=== PATIENT | male | born 1960 | race Caucasian/White ===

== ENCOUNTER 2024-03-08 08:26 | Outpatient (AMB) | payer MEDICARE, OTHER, SELFPAY ==
--- NOTE | 2024-03-08 08:39 | MHC.OFFVIS ---
Vital Signs 03/08/24 08:41 Height 5 ft 8 in Weight 188 lb 11.451 oz BMI 28.7 BP 130/82 Blood Pressure Location Rt brachial Position Sitting Respiration 18 Pulse 52 Pulse Source Pulse Oximeter Pulse Oximetry (%) 97 Oxygen Delivery Method Room Air Intake Visit Reasons: Gout/LVM to REl Rec Intake Note: Patient presents for gout. No flares ups. Allergies No Known Allergies Allergy (Verified 03/08/24 08:43) HPI HPI Gout/LVM to REl Rec: Details: Allopurinol 100 mg daily and colchicine 0.6 mg daily started after last visit in September 2023 for presumed gout. He had an episode of left ankle and foot swelling prior to initiating allopurinol. Last year he had an episode of left wrist swelling. After starting allopurinol 100 mg daily Uric acid in October was 6.9. In November, he saw Dr. Hardin who advised patient to increase allopurinol to 200mg daily. He remained on colchicine 0.6 mg daily. [facility] had [facility] which concerned patient to possibly being related to starting allopurinol or colchicine. On January 19 uric acid level is 6.5 and he self lowered dose of allopurinol 100mg daily and colchcine 0.6mg every other day. On February 08 he resumed daily allopurinol 100mg daily and colchicine 0.6mg daily due to no other episodes of blood in semen after ejuculation. February 19 he increase allopurinol 200mg daily. On March 03 he had blood in semen again. Now on allopurinol 100mg every 36 hours and colchicine 0.6mg every other days. He will be meeting with urologist next week. He had a procedure to his prostate in September. Called his urologist and inquired if the bleeding may be related to the procedure. He was told that it is rare but possible. He has not had any other joint swelling episodes since last visit. He continues to experience right knee giving out on himself. He continues to exercise regularly and goes to the gym. In the past I have given him a PT requisition to improve knee strength, which she has not pursued. Denies any joint pain or swelling [facility], [facility] Family History (Updated 03/08/24 @ 08:54 by MINNA Chavez) Father Prostate cancer Social History (Updated 03/08/24 @ 08:53 by MINNA Chavez) Household Members: Spouse Housing: House Alcohol intake: current Comment: Rare Patient Tobacco Use Status: Never used Tobacco Review of Systems Const All systems reviewed & are unremarkable except as noted in HPI and below Physical Exam Vital Signs: Last Vital Signs Pulse 52 03/08/24 08:41 Resp 18 03/08/24 08:41 BP 130/82 03/08/24 08:41 Pulse Ox 97 03/08/24 08:41 Oxygen Delivery Method Room Air 03/08/24 08:41 BMI result Body Mass Index 28.7 Const Other: General: Comfortable Skin: No lesions seen MSK: No tenderness of any joints. No synovitis noted. Good range of motion of upper extremity and lower extremity. Assessment & Plan Assessment & Plan (1) Gout: Comment: Presumed diagnosis. He recently started allopurinol and colchicine in September. Subsequently he developed bloody semen which he is concerned may be a side effect. I have looked up side effects related to both colchicine and allopurinol and could not find this to be the case. He will be following up with Urology next week. Code(s): M10.9 - Gout, unspecified Category: Medical Plan: Continue allopurinol 100 mg daily Continue colchicine 0.6 mg daily Uric acid level ordered I reviewed labs from patient's portal access which revealed normal CBC and creatinine. AST ALT and inflammatory markers have been ordered this visit Follow-up with urology Return to clinic in 3 months (2) Other termite treater helper (current) drug therapy: Code(s): Z79.899 - Other prison (current) drug therapy Category: Medical Plan: See above (3) Knee pain, right: Comment: Intermittent right knee giving out on patient. We discussed importance and knee strengthening. Code(s): M25.561 - Pain in right knee Category: Medical Plan: I will refer him to PT. Return to clinic in 3 months Orders: Orders Erythrocyte Sedimentation Rate Today M10.9 - Gout, unspecified Creatinine Today M10.9 - Gout, unspecified Complete Blood Count Auto Diff Today M10.9 - Gout, unspecified Uric Acid Today M10.9 - Gout, unspecified Aspartate Amino Transferase Today M10.9 - Gout, unspecified C Reactive Protein Today M10.9 - Gout, unspecified Alanine Aminotransferase Today M10.9 - Gout, unspecified Coding Level of Care Code Est Pt Level 4 (69213) Complex EM visit Add On G2211 Diagnoses Gout M10.9 Other termite treater helper (current) drug therapy Z79.899 Knee pain, right M25.561
[2024-03-08 08:41] VITALS: BP 130/82; PULSE 52; RESP 18; O2SAT 97; BMI 28.7
== END 2024-03-08 09:45 | disposition home or self-care (01) ==
PROVIDERS: PCP Internal Medicine; Visit Provider Internal Medicine Rheumatology
DX: M10.9 Gout, unspecified (principal); Z79.899 Other long term (current) drug therapy; M25.561 Pain in right knee
CPT/HCPCS: 99214; G2211

== ENCOUNTER → 2024-03-08 08:26 | Outpatient (BNVA) | payer MEDICARE, OTHER, SELFPAY | PROVIDERS: PCP Internal Medicine; Visit Provider Internal Medicine Rheumatology | DX: M10.9 Gout, unspecified (principal); M25.561 Pain in right knee; Z79.899 Other long term (current) drug therapy | CPT/HCPCS: 99212 ==

== ENCOUNTER 2024-06-01 09:21 | Outpatient (REF) | payer MEDICARE, OTHER, SELFPAY ==
--- NOTE | ~2024-06-01 | XR_ITS ---
EXAMINATION: XR KNEE, RIGHT CLINICAL INFORMATION: M17.0 - Bilateral primary osteoarthritis of knee COMPARISON: None available. TECHNIQUE: Two views of the right knee. FINDINGS: No acute cortical disruption or malalignment. No lytic or blastic lesions no suprapatellar bursa joint effusion. No subcutaneous emphysema. XR/XR knee RT 2V IMPRESSION: Normal x-ray, right knee. Electronically signed by: Nato Valero MD 06/01/2024 03:12 PM LADARIUS
--- NOTE | ~2024-06-01 | XR_ITS ---
EXAMINATION: XR KNEE, LEFT CLINICAL INFORMATION: M17.0 - Bilateral primary osteoarthritis of knee COMPARISON: None available. TECHNIQUE: Two views of the left knee. FINDINGS: No acute cortical disruption or malalignment. No suprapatellar bursa joint effusion. Exostosis at the quadriceps tendon insertion. No lytic or blastic lesions. Vascular calcifications. XR/XR knee LT 2V IMPRESSION: Enthesopathy, quadriceps tendon insertion. Atherosclerosis disease, peripheral. Electronically signed by: Nato Valero MD 06/01/2024 03:13 PM LADARIUS PARKER
--- OUTSIDE RECORDS SUMMARY | 2024-06-01 11:34 | XMS_ITS | Encounter Summary ---
Author Organization [facility] Address [address] [place] [address] Care Team Providers Care Plant Wrapper Name Role Phone Unavailable Primary Care Provider Unavailabl e Encounter Details Date Type Department Care Team (Latest Contact Info) Description 04/04/2020 Lab Requisition [facility] COVID [address] Through [address] [place] [address] [address] [place] [address] Benjy Allen PA-C [address] [place] [address] [id number] Encounter for laboratory testing for COVID-19 virus Social History Tobacco Use Types Packs/Day Years Used Date Smoking Tobacco: Never Assessed Sex and Gender Information Value Date Recorded Sex Assigned at Not on file Gender Identity Not on file Sexual Orientation Not on file documented as of this encounter Plan of Treatment Not on file documented as of this encounter Procedures Procedure Name Priority Date/Time Associated Diagnosis Comments COVID-19 (SARS-COV-2) - [facility] Routine 04/04/2020 11:13 AM EST Encounter for laboratory testing for COVID-19 virus [ICD-10-CM] documented in this encounter Results * COVID-19 (SARS-COV-2) (SEMA4) (04/04/2020 11:13 AM EST) COVID-19 RT-PCR NOT-DETECT ED Not-Detec gareth 04/07/2020 11:12 PM EST [facility] Comment:Interpretation: The viral RNA was not detected, making the COVID-19 diagnosis less likely. Clinical correlation is highly recommended.Final report signed by Jamie Toscano, Ph.D., [facility], Laboratory DirectorTests performed at [facility] Nasopharyngeal swab / Unknown 04/04/2020 11:13 AM EST 04/04/2020 11:13 AM EST Narrative JOHNNY KAPOOR - 04/07/2020 11:12 PM EST Performed by [employer], [employer] [address] [place] [address], CLIA# [id number] and [place] License# [id number] Benjy Allen PA-C MICROBIOLOGY - NERAL ORDERABLES JOHNNY KAPOOR documented in this encounter Visit Diagnoses Diagnosis Encounter for laboratory testing for COVID-19 virus documented in this encounter
--- OUTSIDE RECORDS SUMMARY | 2024-06-01 11:34 | XMS_ITS | Encounter Summary ---
Author Organization [facility] Address [address] [place] [id number] Care Team Providers Care Auto Transmission Specialist Name Role Phone Unavailable Primary Care Provider Unavailabl e Encounter Details Date Type Department Care Team (Latest Contact Info) Description 04/01/2020 Lab Requisition [facility] COVID Drive Through [address] [place] [address] [address] [place] [address] Benjy Allen PA-C [address] [place] [address] [phone] Encounter for laboratory testing for COVID-19 virus [...] Date/Time Associated Diagnosis Comments COVID-19 (SARS-COV-2) - [facility] Routine 04/01/2020 1:56 PM EST Encounter for laboratory testing for COVID-19 virus [ICD-10-CM] documented in this encounter Results * COVID-19 (SARS-COV-2) (SEMA4) (04/01/2020 1:56 PM EST) COVID-19 RT-PCR NOT-DETECT ED Not-Detec gareth 04/03/2020 7:39 PM EST [facility] Comment:Interpretation: The viral RNA was not detected, making the COVID-19 diagnosis less likely. Clinical correlation is highly recommended.Final report signed by Jamie Toscano, Ph.D., [facility], Laboratory DirectorTests performed at [facility] Nasopharyngeal swab / Unknown 04/01/2020 1:56 PM EST 04/01/2020 1:56 PM EST Narrative JOHNNY KAPOOR - 04/03/2020 7:39 PM EST Performed by [employer], [employer] [address] [place] [address], CLIA# [id number] and [place] License# [id number] Benjy Allen PA-C MICROBIOLOGY - NERAL ORDERABLES WELLINGTONReji KAPOOR documented in this encounter Visit Diagnoses Diagnosis Encounter for laboratory testing for COVID-19 virus documented in this encounter
--- OUTSIDE RECORDS SUMMARY | 2024-06-01 11:34 | XMS_ITS | Clinical Summary ---
Author Organization [facility] Address [address] [place] [address] Care Team Providers Care Taper Machine Name Role Phone Unavailable Primary Care Provider Unavailabl e Social History Tobacco Use Types Packs/Day Years Used Date Smoking Tobacco: Never Assessed Sex and Gender Information Value Date Recorded Sex Assigned at Not on file Gender Identity Not on file Sexual Orientation Not on file Plan of Treatment Health Maintenance Due Date Last Done Comments Hepatitis C Virus Screening 1960 HIV Screening 1971 DTaP/Tdap/Td Vaccines (1 - Tdap) 1977 Pneumococcal Vaccines 50+ (1 of 1 - PCV) 2008 Zoster (Shingles) Vaccine (1 of 2) 2008 COVID-19 Vaccine ( - 2023-2 5 season) 2023 RSV Vaccine 60 years and old er and Patients (1 - 1-dose 75+ series) 2033 Hepatitis B Vaccines Aged Out No long er eligible based on patient's age to complete this topic
--- OUTSIDE RECORDS SUMMARY | 2024-06-01 11:34 | XMS_ITS | Clinical Summary ---
Author Organization [facility] ity Address [address] [place] [address] Care Team Providers Care Building Performance Consultant Name Role Phone Anna Nathan MD Primary Care Provider [phone] Allergies Active Allergy Reactions Criticality Noted Date Comments Bee Venom Protein (Honey Bee) 2016 Medications famotidine (PEPCID) 20 mg tablet TAKE 1 TABLET BY MOUTH 2 TIMES DAILY. PRIOR TO MEALS 180 tablet 1 4 Active allopurinoL (ZYLOPRIM) 100 mg tablet Take 1 Tablet by mouth daily. Active ascorbic acid, vitamin C, 500 mg capsule Take 1 capsule by mouth 1 (one) time each day. Active colchicine (COLCRYS) 0.6 mg tablet Take 1 tablet (0.6 mg total) by mouth 1 (one) time each day. 4 Active tamsulosin (FLOMAX) 0.4 mg 24 hr capsule Take 1 capsule (0.4 mg total) by mouth at bedtime. Active multivitamin with minerals (CENTRUM) tablet Multiple Vitamins-Min erals (Multivitami n Adults 50+) Tab Take 1 Tablet by mouth daily. Active pravastatin (PRAVACHOL) 40 mg tablet TAKE 1 TABLET BY MOUTH EVERY DAY 90 tablet 1 5 Active pravastatin (PRAVACHOL) 40 mg tablet Take 1 tablet (40 mg total) by mouth 1 (one) time each day. 025 Discontinued Active Problems Problem Noted Date Diagnosed Date Hyperlipidemia 03/08/2024 Gout 12/23/2023 Gastroesophageal reflux disease without esophagi tis 11/25/2022 CKD (chronic kidney disease) stage 2, GFR 60-89 ml/min 10/19/2022 Overweight (BMI 25.0-29.9) 10/19/2022 Pre-diabetes 04/24/2022 Vitamin B 12 deficiency 04/24/2022 Chronic cough 01/06/2022 Overview (03/08/2024): Last Assessment & Plan: Chronic cough has improved. I do think that is multifactorial secondary to chronic rhinitis, seasonal allergies and GERD. We have treated the postnasal drip aggressively and the patient feels better but is not 100%. I do think is worth it and evaluation by allergy due to the fact that he improved with antihistamines. I will do a referral to allergy, renew Zyrtec and Flonase and see him back in clinic in 6 months. 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 Last on in [place]. [facility]. Rhinitis 10/11/2012 Overview (03/08/2024): Last Assessment & Plan: 1. Flonase 1 puff twice a day in each nostril 2. Zyrtec 10 mg p.o. every day Immunizations Name Administration Dates Next Due Influenza Quadravalent, MDCK , 0.5ml, preservative free (Flucelvax) 6mo and older 04/21/2021,05/26/2019 Influenza Quadravalent, MDCK , 0.5ml, with preservative (Flucelvax) 6mo and older 02/08/2018 Influenza trivalent, 0.5mL ( Fluad) 65yo and older 12/23/2023 Influenza trivalent, 0.5mL, preservative free (Fluarix; FluLaval; Fluzone) ages 6mo and older (Afluria) 3 years and older 03/26/2015,03/29/2014 Influenza trivalent, with pr eservative (Fluzone; Afluria) 6mo and older 01/16/2013 Moderna (age 6mo & older) Bi valent, COVID-19, 0.5 mL or 0.25 mL dosage 03/16/2022 Pfizer SARS-CoV-2 COVID-19, mRNA, LNP-S, preservative free 08/25/2021,07/29/2020,07/08/2020 Pneumococcal conjugate 20 va lent (Prevnar 20, PCV 20) 2mo and older 06/11/2023 Pneumococcal polysaccharide 23 valent (Pneumovax 23) 2yo and older 07/04/2001 Td Tetanus diptheria (Tdvax) 7yo and older 10/29 Tdap Tetanus diptheria acell ular pertussis (Boostrix; Adacel) 7yo and older 10/05/2022,04/18/2013 Zoster recombinant (Shingrix ) 19yo and older 07/08/2022,05/13/2022 Surgical History Surgery Date Site/Laterality Comments OTHER SURGICAL HISTORY PROCEDURE: ---- OTHER ----; COMMENT: cornal trasplant OTHER SURGICAL HISTORY PROCEDURE: ---- OTHER ----; COMMENT: deviated septum OTHER SURGICAL HISTORY PROCEDURE: ---- OTHER ----; COMMENT: arthrospic knee surgery HERNIA REPAIR 12/09/2018 Right PROCEDURE: LAPAROSCOPY, INGUINAL HERNIA REPAIR; COMMENT: Dr. Guerrero Medical History Medical History Date Comments Dyslipidemia DX:Dyslipidemia Microscopic hematuria DX:Microsc opic hematuria Gout 12/23/2023 DX:Gout Family History Medical History Relation Name Comments Prostate cancer Father CVA, HTN, ch olesterol Leukemia Paternal Grandfather Relation Name Status Comments Father Mother Alive Paternal Grandfather Social History Tobacco Use Types Packs/Day Years Used Date Smoking Tobacco: Never Smokeless Tobacco: Never Alcohol Use Standard Drinks/Week Comments Yes 0 (1 standard drink = 0.6 oz pur e alcohol) Sex and Gender Information Value Date Recorded Sex Assigned at Not on file Legal Sex Male 3:17 PM EST Gender Identity Not on file Sexual Orientation Not on file Obstetrics History Last Filed Vital Signs Vital Sign Reading Time Taken Comments Blood Pressure 130/84 12/23/2023 8:45 AM EDT Pulse 76 12/23/2023 8:29 AM EDT Temperature - - Respiratory Rate - - Oxygen Saturation - - Inhaled Oxygen Concentration - - Weight 86 kg (189 lb 8 oz) 12/23/2023 8:29 AM ED T Height 171.5 cm (5' 7.5 ) 12/23/2023 8:29 AM EDT Body Mass Index 29.24 12/23/2023 8:29 AM EDT Plan of Treatment Upcoming Encounters Date Type Department Care Team (Late st Contact Info) Description 07/20/2024 8:30 AM EDT Office Visit Adult Medicine [facility] [address] [place] [address] Anna Nathan MD [address] [place] [address] Health Maintenance Due Date Last Done Comments Medicare Annual Wellness Visit 03/21/2022 Social Influencers of Health Screening 03/21/2022 COVID-19 Vaccine ( season) 2023 03/16/2022, 08/25/2021, 07/29/2020, Additional history exists Depression Screening 12/22/2024 12/23/2023 Falls Risk Assessment 12/22/2024 12/23/2023 Cholesterol Screening (Lipid Panel) 07/04/2028 07/05/2023 Colorectal Cancer Screening: Colonoscopy 01/27/2029 01/27/2019 DTaP,Tdap,and Td Vaccines (4 - Td or Tdap) 10/05/2032 10/05/2022, 04/18/2013, 10/29/2006 RSV Immunization Patients 60+ Years Old (1 - 1-dose 75+ series) 2033 Hepatitis C Screening Completed 12/05/2016 Zoster Vaccines Completed 07/08/2022, 05/13/2022 Pneumococcal Vaccine: 50+ Years Completed 06/11/2023, 07/04/2001 Pneumococcal Vaccine: Pediatrics (0 to 5 Years) and At-Risk Patients (6 to 64 Years) Aged Out 06/11/2023, 07/04/2001 No longer eligibl e based on patient's age to complete this topic Influenza Vaccine Completed 12/23/2023, , 05/26/2019, Additional history exists HIB Vaccines Aged Out No longer eligi ble based on patient's age to complete this topic HPV Vaccines Aged Out No longer eligi ble based on patient's age to complete this topic Hepatitis A Vaccines Aged Out No long er eligible based on patient's age to complete this topic Hepatitis B Vaccines Aged Out No long er eligible based on patient's age to complete this topic IPV Vaccines Aged Out No longer eligi ble based on patient's age to complete this topic MMR Vaccines Aged Out No longer eligi ble based on patient's age to complete this topic Meningococcal ACWY Vaccine Aged Out N o longer eligible based on patient's age to complete this topic Meningococcal B Vacine Aged Out No lo nger eligible based on patient's age to complete this topic RSV Immunization Patients Under 20 months Aged Out No longer eligible based on patient's age to complete this topic Varicella Vaccines Aged Out No longer eligible based on patient's age to complete this topic Procedures Procedure Name Priority Date/Time Associated Diagnosis Comments DEPRESSION SCREENING Routine 12/23/2023 FALLS RISK ASSESSMENT Routine 12/23/2023 LIPID PANEL Routine 07/05/2023 COLONOSCOPY Routine 01/27/2019 HEPATITIS C SCREENING Routine 12/05/2016 from Last 3 Months or Most Recently Relevant to Health Maintenance Results * Falls Risk Assessment (12/23/2023) Pathologist [facility] [place] Falls Risk Assessment Abstracted Historical Provider MD HEALTH MAINTENANCE Final Result * Depression Screening (12/23/2023) Pathologist [facility] Depression Screening Abstracted Historical Provider MD HEALTH MAINTENANCE Final Result * Lipid panel (07/05/2023) Pathologist [facility] LDL/HDL Ratio 3 0 - 4 Triglycerides 97 0 - 150 mg/dL Cholesterol 175 0 - 200 mg/dL HDL 59 >=40 mg/dL LDL Cholesterol 97 0 - 100 mg/dL Blood Venous blood specimen / Unknown us Historical Provider LAB BLOOD ORDERABLES Deidre l Result * Colonoscopy (01/27/2019) Colonoscopy Abstracted, no interpretation Anatomical Region Laterality Modality Other Historical Provider HEALTH MAINTENANCE Final Result * Hepatitis C Screening (12/05/2016) Hepatitis C Screening Abstracted Historical Provider HEALTH MAINTENANCE Final Result from Last 3 Months or Most Recently Relevant to Health Maintenance Insurance MEDICARE Care Teams Building Performance Consultant Relationship Specialty Start Date End Date Anna Nathan MD [address] [place] [address] PCP - General Internal Medicine 02/14/21
== END 2024-06-01 09:22 | disposition home or self-care (01) ==
LOC: HO.HMGCX 09:21
PROVIDERS: PCP Internal Medicine; Visit Provider Internal Medicine Rheumatology
DX: M1A.09X0 Idiopathic chronic gout, multiple sites, without tophus (tophi) (principal); M17.0 Bilateral primary osteoarthritis of knee; M19.041 Primary osteoarthritis, right hand; G89.29 Other chronic pain; Z79.899 Other long term (current) drug therapy
CPT/HCPCS: 73560; 99212

== ENCOUNTER 2024-06-01 09:21 | Outpatient (AMB) | payer MEDICARE, OTHER, SELFPAY ==
--- NOTE | 2024-06-01 09:23 | A.OFFVIS_ITS ---
Vital Signs 06/01/24 09:25 Height 5 ft 8 in Weight 192 lb BMI 29.2 BP 110/82 Blood Pressure Location Rt brachial Position Sitting Intake Visit Reasons: Follow Up 3mo Intake Note: Patient presents for gout follow up. Allergies No Known Allergies Allergy (Verified 06/01/24 09:25) HPI HPI Follow Up 3mo: Details: Increase pain left lateral hip wednesday morning. Exacerbated with shoveling snow. He has been experiencing pain with limited mobility of right 2nd finger for at least a month to month and a half. No recent gout flares. After prolonged sitting he has difficulty going upstairs. He has do stretches knees. He feels that there is weakness in his knees when he is going upstairs. His daughter has training in sports Medicine and has been giving him exercises regularly to do since 12/2023. There has been no change in his symptoms. He has previously declined PT. [facility] Family History Father Prostate cancer Social History Household Members: Spouse Housing: House Alcohol intake: current Comment: Rare Patient Tobacco Use Status: Never used Tobacco Review of Systems Const All systems reviewed & are unremarkable except as noted in HPI and below Physical Exam Vital Signs: Last Vital Signs BP 110/82 06/01/24 09:25 BMI result Body Mass Index 29.2 Const Other: General: Comfortable Skin: No lesions seen MSK: Heberden nodes present. Tender right 2nd DIPJ with Heberden node. Slight synovitis of right 2nd DIPJ. Good range of motion of upper extremity and lower extremity. Negative anterior and posterior drawer test right knee. Assessment & Plan Assessment & Plan (1) Gout: Comment: Presumed diagnosis. He takes allopurinol 100 mg daily and colchicine 0.6 mg daily. No recent flares. Last uric acid was 6.6, which is not at goal. When he was on allopurinol 200 mg daily his uric acid level was not at goal. We discussed increasing allopurinol to 300 mg daily to help control uric acid level and continuing colchicine to prevent gout flares. Patient agrees with plan. Code(s): M10.9 - Gout, unspecified Category: Medical Qualifiers: Gout site: multiple sites Gout etiology: unspecified cause Chronicity: chronic Qualified Code(s): M1A.09X0 - Idiopathic chronic gout, multiple sites, without tophus (tophi) Plan: Increase allopurinol to 300 mg daily Continue colchicine 0.6 mg daily Uric acid level for disease monitoring and,CBC, creatinine, AST and ALT for drug monitoring ordered to have done in a month after patient returns from [place] Return to clinic in 3 months (2) Other correction (current) drug therapy: Code(s): Z79.899 - Other correction (current) drug therapy Category: Medical Plan: See above (3) Osteoarthritis, hand, primary localized: Comment: Julissa osteoarthritis. Clinical diagnosis. Right 2nd DIPJ osteoarthritis flare. X-ray bilateral hands May 2023 was normal. We discussed conservative management. Code(s): M19.049 - Primary osteoarthritis, unspecified hand Category: Medical Qualifiers: Laterality: right Qualified Code(s): M19.041 - Primary osteoarthritis, right hand Plan: Apply diclofenac gel 1% to affected area every 4-6 hours as needed Return to clinic in 3 months (4) Knee pain, right: Comment: His symptoms have worsened with him experiencing right knee/leg weakness when going up stairs. History of his right knee giving out on him. He has been working with his daughter has experience with sports Medicine on a home exercise program without benefit. X-ray right knee 07/16/2022 was normal. Code(s): M25.561 - Pain in right knee Category: Medical Qualifiers: Chronicity: chronic Qualified Code(s): M25.561 - Pain in right knee; G89.29 - Other chronic pain Plan: PT referral for lower extremity strengthening X-ray of bilateral knees ordered for comparison and to determine if there is new development of osteoarthritis contributing to his symptoms Return to clinic in 3 months Orders: Orders Uric Acid Today Z79.899 - Other correction (current) drug therapy Aspartate Amino Transferase Today Z79.899 - Other long chain quiller tender (current) drug therapy XR knee RT 2V Today M17.0 - Bilateral primary osteoarthritis of knee XR knee LT 2V Today M17.0 - Bilateral primary osteoarthritis of knee PT Evaluation and Treatment Today M19.049 - Primary osteoarthritis, unspecified hand Alanine Aminotransferase Today Z79.899 - Other long chain quiller tender (current) drug therapy Complete Blood Count Auto Diff Today Z79.899 - Other correction (current) drug therapy Medications: New diclofenac sodium 1% (Arthritis Pain (diclofenac)) apply to affected area every 4-6 hours PRN pain 2 grams topical QID 100 grams 5RF allopurinol 300 mg PO DAILY 90 tabs 3RF Changed From colchicine 0.3 mg PO DAILY To colchicine 0.6 mg PO DAILY 90 tabs 2RF Discontinued allopurinol Discontinued Reason: Doctor's Order 100 mg PO DAILY 90 tabs 3RF Coding Level of Care Code Est Pt Level 4 (46330) Complex EM visit Add On G2211 Diagnoses Chronic gout of multiple sites, unspecified cause M1A.09X0 Gout site: multiple sites Gout etiology: unspecified cause Chronicity: chronic Other long chain quiller tender (current) drug therapy Z79.899 Localized primary osteoarthritis of right hand M19.041 Laterality: right Chronic pain of right knee M25.561; G89.29 Chronicity: chronic
[2024-06-01 09:25] VITALS: BP 110/82; BMI 29.2
--- OUTSIDE RECORDS SUMMARY | 2024-06-01 10:05 | XMS_ITS | Continuity of Care Document ---
Author Organization [facility] ter Address [address] [place] [address]- Care Team Providers Care Manager Implementation Name Role Phone Deb Chaudhry DO Primary Care Celestino sommer Encounter 05/08/24 - 05/09/24 [facility] [address] [place] [address]- Attending Physician: Not on Staff, Attending MD Referring Physician: Not on Staff, Referring MD Encounter Type: [facility] Allergies, Adverse Reactions, Alerts No Known Allergies Immunizations Given and Recorded Vaccine Date Status Refusal Reason influ virus vac, H1N1, inactive(oldterm) 1 05/30/09 Given tetanus-diphtheria toxoids (Td) 2 10/29/06 Given Pneumococcal Poly (PPV23) (oldterm) 07/04/01 Given 1Admin Note: H1N1 vis given 2Admin Note: vis form given, inj given without incident. Medications Aspirin Tablet 81 mg, By Mouth, Daily, # 24 tablet, Tot. Refills 0, 06/25/07 9:41:51 AM EDT Start Date: 06/25/07 Status: Ordered Quantity: 24.0 Unit: tablet Repeat number: 1 Claritin 24 Hour Allergy 10 mg oral tablet 1 tablet = 10 mg, By Mouth, Daily, # 30 tablet, 0 Refills, Maintenance, 09/14/11 8:27:37 AM EDT, Tablet Start Date: 09/14/11 Status: Ordered Quantity: 30.0 Unit: tablet Repeat number: 1 [place]-3 Polyunsaturated Fatty Acids = 2,000 mg, By Mouth, Daily, 0 Refills, Maintenance, 9/16/10 4:38:10 PM EDT Start Date: 12/26/09 Status: Ordered Repeat number: 1 Alfredo Dailey 0 Refills, 10/03/08 8:22:57 AM EDT Start Date: 10/03/08 Status: Ordered Repeat number: 1 simvastatin 20 mg oral tablet 1 tablet = 20 mg, By Mouth, Daily, # 90 tablet, 2 Refills, Maintenance, 03/25/12 11:54:36 AM EST, [facility]/pharmacy #[id number] Start Date: 03/25/12 Stop Date: 12/20/12 Status: Ordered Quantity: 90.0 Unit: tablet Repeat number: 3 Vitamin D3 1000 intl units oral capsule Daily, 0 Refills, Maintenance, 12/26/09 4:37:47 PM EDT Start Date: 12/26/09 Status: Ordered Repeat number: 1 Problem List Condition Confirmation Course Effective Dates Status H ealth Status Informant BPH - Benign prostatic hypertrophy Confirmed Active Corneal transplant Confirmed Active Hyperlipidemia Confirmed Active Perennial allergic rhinitis Confirmed Active Results Radiology Reports * Exam Date Time Procedure Performing Provider Status 05/08/24 1:45 PM MR Prostate W+W/O Co ntrast 3D Reformat Auth (Verified) Notes: (MR Prostate W+W/O Contrast 3D Reformat) Reason For Exam: Elevated prostate specific antigen [PSA];Elevated prostate specific antigen [PSA] RESULT: MR Prostate W+W/O Contrast 3D Reformat [facility] VISIT NUMBER :[id number] Patient Name: Zina Stoddard Date of : 1960 Date of Exam: 05-08-2024 Referring Physician: Joey Mosley [facility] [place] [address] Exam: MR Prostate (C-/C+) with 3D reformat CPT 62538, 75318 Room Description: [facility] 3T MRI MR Prostate (C-/C+) with 3D reformat CPT 32321, 24239 REASON FOR EXAM: Male aged 63 years diagnosed with elevated PSA. Prostate biopsy date and results: Prior prostate biopsies with benign results. Most recent PSA: 13.0 TECHNIQUE: Noncontrast and contrast-enhanced multiparametric MRI of the prostate gland was performed utilizing a body matrix coil and PROSTATE PROTOCOL. Dynamic pre- and postcontrast imaging was utilized. 18 cc of intravenous Dotarem contrast was administered. High resolution axial, sagittal, and coronal FSE T2, axial FSE T1, axial DWI, axial pre and multiphase dynamic postcontrast 3D FSPGR T1 pulse sequences were performed. Postprocessing on an independent workstation included creation of a 3D rotational prostate segmentation volume analysis, 3D lesion analysis, subtraction images, multiplanar reformatted images, wash-in and wash-out maps as well as computer aided detection (CAD) GauzyaCAD software. Findings are reported using Prostate Imaging Reporting and Data System (PI-RADS) version 2.1. COMPARISON: Multiple prior prostate MRIs, most recently June 17, 2023 FINDINGS: The prostate is enlarged and measures 6.1 x.5 x 7.1 cm. 3D processing calculated prostate volume is 101.4 cc. PERIPHERAL ZONE: There are no areas of T1 hyperintensity to suggest the presence of hemorrhage. Peripheral zone lesion #1: * Size: 1.2 x 0.7 x 0.6 cm. * Location: Left posteromedial/posterolateral portion of the peripheral zone at the base to mid gland, zone 7p/8p/9p/20p (series 4 images 17 and 18). * Diffusion: Diffusion characteristics are described as focal markedly hypointense on ADC and hyperintense on high b-value DWI, cm in greatest dimension, correlating with a DWI-ADC score of 4. * T2-Weighted: Heterogeneous signal intensity or ill-defined, rounded, moderate hypointensity correlating with a T2W score of 3. * Perfusion: Positive dynamic contrast enhancement corresponding to suspicious findings on T2 and/or DWI-ADC. * Shortest distance from urethra: 1.2 cm. * Shortest distance from prostatic capsule: 0 cm. * Capsule: Intact. * Overall suspicion: Category 4: High (Clinically significant cancer is likely to be present). TRANSITION ZONE: The transition zone is heterogeneous and contains well-defined nodules yielding the organized chaos appearance of benign prostatic hyperplasia. Transition zone lesion #2: * Size: 3.0 x 1.7 x 1.8 cm. * Location: Left posterior portion of the transition zone at the mid gland to base, zone 7a/9a (series 4 images 16-21). * T2-Weighted: Heterogeneous signal intensity with obscured margins correlating with a T2W score of 3. * Diffusion: Focal (discrete and different from the background) hypointense on ADC and/or focal hyperintense on high b-value DWI; may be markedly hypointense on ADC or markedly hyperintense on high b-value DWI, but not both, correlating with a DWI-ADC score of 3. * Perfusion: Positive dynamic contrast enhancement corresponding to suspicious findings on T2 and/or DWI-ADC. * Shortest distance from urethra: 0.6 cm. * Shortest distance from prostatic capsule: 0 cm. * Capsule: Intact. * Overall suspicion: Category 3: Intermediate (Clinically significant cancer is equivocal). PROSTATE CAPSULE: There is no evidence of capsular invasion. SEMINAL VESICLES: Asymmetric increased T1 hyperintensity within the left seminal vesicle suggesting proteinaceous or hemorrhagic debris. LYMPH NODES: No enlarged pelvic or inguinal lymph nodes. VESSELS: Major pelvic vessels demonstrate normal enhancement. URINARY BLADDER: Layering T1 hyperintensity within the bladder lumen. PELVIS: No free fluid. COLON AND RECTUM: The visualized loops of large and small bowel are unremarkable aside from mild colonic diverticulosis BONES: No suspicious osseous lesion. ADDITIONAL FINDINGS: Suspected right inguinal herniorrhaphy changes with persistent or recurrent indirect fat-containing right inguinal hernia. Vasectomy clips. IMPRESSION: 1. Unchanged 1.2 cm left posteromedial/posterolateral peripheral zone lesion at the base, possibly representing residual central gland stroma given the location and appearance. PI-RADS v2.1 Category 4: High (Clinically significant cancer is likely to be present). 2. 3 cm left posterior transition zone lesion at the mid gland to base with heterogeneous signal intensity with obscured margins and patchy areas of mild to moderate restricted diffusion. PI-RADS v2.1 Category 3: Intermediate (Clinically significant cancer is equivocal). 3. No evidence of adenopathy, capsule, or seminal vesicle invasion. No suspicious osseous lesion. 4. 3D processing calculated prostate volume is 101.4 cc. REFERENCE: PI-RADS Version 2.1 Assessment Categories: Category 1: Very low - Clinically significant cancer is highly unlikely. Category 2: Low - Clinically significant cancer is unlikely. Category 3: Intermediate - Clinically significant cancer is equivocal. Category 4: High - Clinically significant cancer is likely. Category 5: Very High - Clinically significant cancer is highly likely. PI-RADS Version 2.1 Definition of Clinically Significant Cancer: Tumor with a Kosta score of 7 or more (either 4 + 3 or 3 + 4 with a prominent Guthrie 4 com?ponent) and/or volume greater than 0.5 cm3 and/or extraprostatic extension. Electronically Signed By: Garcia Lucas MD Dictated By: Not on Staff , ASHLEY COPELAND Dictated Date/Time: 05/08/24 3:17 pm Reviewed By: Not on Staff , ASHLEY COPELAND Signed By: Not on Staff , ASHLEY COPELAND Signed Date/Time: 05/08/24 3:17 pm Transcribed By: MELANIA Transcribed Date/Time: 05/08/24 3:17 pm Patient Care team information Care Team Personnel Name: Marni Roberts RN Position: [facility] AMB Nurse Member Role: Primary Care Nurse Name: Deb Chaudhry DO Position: [facility] Physician - Primary Care Member Role: PCP Address: [address] [place] [address] Telecom: Care Team Related Persons Name: MARISSA STODDARD Insurance Providers Guarantor name: [employer]LAZE Health Plan Information #: 1 Payer: [facility] Member Number: NA Policy Number: NA Group Number: NA
== END 2024-06-01 10:00 | disposition home or self-care (01) ==
PROVIDERS: PCP Internal Medicine; Visit Provider Internal Medicine Rheumatology
DX: M1A.09X0 Idiopathic chronic gout, multiple sites, without tophus (tophi) (principal); Z79.899 Other long term (current) drug therapy; M19.041 Primary osteoarthritis, right hand; M25.561 Pain in right knee; G89.29 Other chronic pain
CPT/HCPCS: 99214; G2211

== ENCOUNTER → 2024-06-01 10:29 | Outpatient (BNV) | payer MEDICARE, OTHER, SELFPAY | PROVIDERS: PCP Internal Medicine; Visit Provider Radiology Diagnostic Radiology | DX: M17.0 Bilateral primary osteoarthritis of knee (principal); I73.9 Peripheral vascular disease, unspecified | CPT/HCPCS: 73560 ==

== ENCOUNTER 2024-08-18 14:43 | Outpatient (REF) | payer MEDICARE, OTHER, SELFPAY ==
--- OUTSIDE RECORDS SUMMARY | 2024-08-18 14:47 | XMS_ITS | Clinical Summary ---
Author Organization [facility] Address [address] [place] [address] Care Team Providers Care Data Analyst Etl Developer Name Role Phone Unavailable Primary Care Provider Unavailabl e Social History Tobacco Use Types Packs/Day Years Used Date Smoking Tobacco: Never Assessed Sex and Gender Information Value Date Recorded Sex Assigned at Not on file Legal Sex Male 6:18 PM EDT Gender Identity Not on file Sexual Orientation Not on file Plan of Treatment Health Maintenance Due Date Last Done Comments Hepatitis C Virus Screening 1960 DTaP/Tdap/Td Vaccines (1 - Tdap) 1977 Pneumococcal [...]
--- OUTSIDE RECORDS SUMMARY | 2024-08-18 14:47 | XMS_ITS | Encounter Summary ---
Author Organization [facility] Address [address] [place] [address] Care Team Providers Care Pari Mutuel Ticket Cashier Name Role Phone Unavailable Primary Care Provider Unavailabl e Encounter Details Date Type Department Care Team (Latest Contact Info) Description 04/01/2020 Lab Requisition [facility] COVID [address] Through [address] [place] [address] [address] [place] [address] Benjy Allen PA-C [address] [place] [id number] Encounter for laboratory testing for COVID-19 virus [...] Date/Time Associated Diagnosis Comments COVID-19 (SARS-COV-2) - [facility] Routine 04/01/2020 1:56 PM EST Encounter for laboratory testing for COVID-19 virus [ICD-10-CM] documented in this encounter Results * COVID-19 (SARS-COV-2) ([facility]) (04/01/2020 1:56 PM EST) COVID-19 RT-PCR NOT-DETECT ED Not-Detec gareth 04/03/2020 7:39 PM EST [facility] - [place] Comment:Interpretation: The viral RNA was not detected, making the COVID-19 diagnosis less likely. Clinical correlation is highly recommended.Final report signed by Jamie Toscano, Ph.D., [facility], Laboratory DirectorTests performed at [facility] Nasopharyngeal swab / Unknown 04/01/2020 1:56 PM EST 04/01/2020 1:56 PM EST Narrative WELLINGTONReji LARIOS Dia RAMSAYLISSETTE - 04/03/2020 7:39 PM EST Performed by [facility] [address] [place] [address], CLIA# [id number] and [place] License# [id number] Benjy Allen PA-C MICROBIOLOGY - GENERAL OR DERABLES Final Result JOHNNY KAPOOR documented in this encounter Visit Diagnoses Diagnosis Encounter for laboratory testing for COVID-19 virus documented in this encounter
--- OUTSIDE RECORDS SUMMARY | 2024-08-18 14:47 | XMS_ITS | Clinical Summary ---
Author Organization [address] Address [address] [place] [phone] Phone Care Team Providers Care Roll Form Operator Name Role Phone Anna Nathan MD Primary Care Provider [phone] Allergies Active Allergy Reactions Criticality Noted Date Comments Bee Venom Protein (Honey Bee) 2016 Medications famotidine (PEPCID) 20 mg tablet TAKE 1 TABLET BY MOUTH 2 TIMES DAILY. PRIOR TO MEALS 180 tablet 1 4 Active ascorbic acid, vitamin C, 500 mg [...] EVERY DAY 90 tablet 1 5 Active allopurinoL (ZYLOPRIM) 100 mg tablet Take 3 tablets (300 mg total) by mouth 1 (one) time each day. Take 1 Tablet by mouth daily. 5 Active allopurinoL (ZYLOPRIM) 100 mg tablet Take 1 Tablet by mouth daily. 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 Last on in [place]. [facility]. Resolved Problems Problem Noted Date Diagnosed Date Resolved Date CKD (chronic kidney disease) stage 2, GFR 60-89 ml/min 10/19/2022 07/20/2024 Rhinitis 10/11/2012 07/12/2024 Overview (03/08/2024): Last Assessment & Plan: 1. Flonase 1 puff twice a day in each nostril 2. Zyrtec 10 mg p.o. every day Encounters Date Type Department Care Team Description 07/20/2024 8:30 AM EDT Office Visit Adult Medicine [address] [phone] Anna Nathan MD Pre-diabetes (Primary Dx); Decreased hearing of both ears; Vitamin B 12 deficiency; Other hyperlipidemia from Last 3 Months Immunizations Name Administration Dates Next Due Influenza [...] 0.5 mL or 0.25 mL dosage 03/16/2022 [employer] SARS-CoV-2 COVID-19, mRNA, LNP-S, preservative free 08/25/2021,07/29/2020,07/08/2020 [...] Surgery Date Site/Laterality Comments OTHER SURGICAL HISTORY : corneal transplant OTHER SURGICAL HISTORY deviated septum OTHER SURGICAL HISTORY arthrospic knee surgery HERNIA REPAIR 12/09/2018 Right inguinal COLONOSCOPY 01/27/2019 Medical History Medical History Date Comments Microscopic hematuria Gout 12/23/2023 CKD (chronic kidney disease) stage 2, GFR 60-89 ml/min 10/19/2022 Hyperlipidemia 03/08/2024 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 Last on in [place]. [facility]. Pre-diabetes 04/24/2022 Vitamin B 12 deficiency 04/24/2022 Nephrolithiasis 06/07/2017 Benign prostatic hyperplasia with lower urinary tract symptoms 06/07/2017 Family History Medical History Relation Name Comments Prostate cancer Father CVA, HTN, ch olesterol Leukemia Paternal Grandfather Relation Name Status Comments Father Mother Alive Paternal Grandfather Social History Tobacco Use Types Packs/Day Years Used Date Smoking Tobacco: Never Smokeless Tobacco: Never Tobacco Cessation:Counseling Given: Not Answered Alcohol Use Standard Drinks/Week Comments Yes 0 (1 standard drink = 0.6 oz pur e alcohol) Sex and Gender Information Value Date Recorded Sex Assigned at Not on file Legal Sex Male 3:17 PM EST Gender Identity Not on file Sexual Orientation Not on file Obstetrics History Last Filed Vital Signs Vital Sign Reading Time Taken Comments Blood Pressure 132/68 07/20/2024 8:25 AM EDT Pulse 69 07/20/2024 8:25 AM EDT Temperature 36.2 ??C (97.1 ??F) 07/20/2024 8:25 AM ED T Respiratory Rate 14 07/20/2024 8:25 AM EDT Oxygen Saturation 96% 07/20/2024 8:25 AM EDT Inhaled Oxygen Concentration - - Weight 87 kg (191 lb 12.8 oz) 07/20/2024 8:25 AM EDT Height 172.7 cm (5' 8 ) 07/20/2024 8:25 AM EDT Body Mass Index 29.16 07/20/2024 8:25 AM EDT Plan of Treatment Upcoming Encounters Date Type Department Care Team (Late st Contact Info) Description 01/22/2025 8:15 AM EDT Office Visit Adult Medicine [facility] [address] [place] [address] Anna Nathan MD [address] [place] [address] Health Maintenance Due Date Last Done Comments Medicare Annual Wellness Visit 03/21/2022 Social Influencers of Health Screening 03/21/2022 COVID-19 Vaccine ( season) 2023 01/15/2023, 03/16/2022, 08/25/2021, Additional history exists Depression Screening 12/22/2024 12/23/2023 Falls Risk Assessment 12/22/2024 12/23/2023 Colorectal Cancer Screening: Colonoscopy 01/27/2029 01/27/2019 Cholesterol Screening (Lipid Panel) 08/16/2029 08/16/2024, 07/05/2023 DTaP,Tdap,and Td Vaccines (4 - Td or Tdap) 10/05/2032 10/05/2022, 04/18/2013, 10/29/2006 RSV Immunization Adult Patients (1 - 1-dose 75+ series) 2033 Hepatitis C Screening Completed 12/05/2016 Zoster Vaccines Completed 07/08/2022, 05/13/2022 Pneumococcal Vaccine: 50+ Years Completed 06/11/2023, 07/04/2001 Influenza Vaccine Completed 12/23/2023, , 05/26/2019, Additional [...] age to complete this topic Meningococcal B Vaccine Aged Out No l onger eligible based on patient's age to complete this topic RSV Immunization Patients Under 20 months Aged Out No longer eligible based on patient's age to complete this topic Varicella Vaccines Aged Out No longer eligible based on patient's age to complete this topic Procedures Procedure Name Priority Date/Time Associated Diagnosis Comments HEMOGLOBIN A1C Routine 08/16/2024 7:43 AM EDT Pre-diabetes LIPID PANEL WITH REFLEX TO DIRECT LDL Routine 08/16/2024 7:43 AM EDT Other hyperlipidemia DEPRESSION SCREENING Routine 12/23/2023 FALLS RISK ASSESSMENT Routine 12/23/2023 COLONOSCOPY Routine 01/27/2019 HEPATITIS C SCREENING Routine 12/05/2016 from Last 3 Months or Most Recently Relevant to Health Maintenance Results * (ABNORMAL) Lipid panel with reflex to direct LDL (08/16/2024 7:43 AM EDT) Cholesterol 176 0 - 200 mg/dL LAB CHEMISTRY METHOD 08/16/2024 11:10 AM EDT [facility] Triglycerides 107 0 - 150 mg/dL LAB CHEMISTRY METHOD 08/16/2024 11:10 AM EDT [facility] HDL 53 >=40 mg/dL LAB CHEMISTRY METHOD 08/16/2024 11:10 AM EDT [facility] LDL Calculated 102(H) 0 - 100 mg/dL LAB CHEMISTRY METHOD 08/16/2024 11:10 AM EDT [facility] VLDL Cholesterol Issac 21.4 mg/dL LAB CHEMISTRY METHOD 08/16/2024 11:10 AM EDT [facility] Non HDL Chol. (LDL+VLDL) 123 <145 mg/dL LAB CHE[facility]STRY [facility] Chol/HDL Ratio 3.3 0.0 - 4.4 LAB CHEMISTRY METHOD 08/16/2024 11:10 AM T [facility] Blood Venous blood specimen / Unknown Venipuncture / Unknown 08/16/2024 7:43 AM EDT 08/16/2024 7:43 AM EDT us Anna Nathan MD LAB BLOOD ORDERABLES Final Resul t [facility] [address] [place] [address], * Hemoglobin A1c (08/16/2024 7:43 AM EDT) Hemoglobin A1C 5.8 <6.5 % LAB CHEMISTRY METHOD 08/16/2024 11:24 AM EDT [facility] Mean Bld Glu Estim. 120 mg/dL LAB CHEMISTRY METHOD 08/16/2024 11:24 AM EDT [facility] Blood Venous blood specimen / Unknown Venipuncture / Unknown 08/16/2024 7:43 AM EDT 08/16/2024 7:43 AM EDT Anna Nathan MD LAB BLOOD ORDERABLES Final Resul t [facility] [address] [place] [address], [place] [phone] * Falls Risk Assessment (12/23/2023) Falls Risk Assessment Abstracted Historical Provider HEALTH MAINTENANCE Final Result * Depression Screening (12/23/2023) Pathologist [facility] Depression Screening Abstracted Historical Provider HEALTH MAINTENANCE Final Result * Colonoscopy (01/27/2019) Colonoscopy Abstracted, no interpretation Anatomical Region Laterality Modality Other Historical Provider HEALTH MAINTENANCE Final Result * Hepatitis C Screening (12/05/2016) Hepatitis C Screening Abstracted Historical Provider HEALTH MAINTENANCE Final Result from Last 3 Months or Most Recently Relevant to Health Maintenance Insurance MEDICARE [facility] Care Teams Roll Form Operator Relationship Specialty Start Date End Date Anna Nathan MD [address] [place] [address] PCP - General Internal Medicine 02/14/21
--- OUTSIDE RECORDS SUMMARY | 2024-08-18 14:47 | XMS_ITS | Encounter Summary ---
Author Organization [facility] Address [address] [place] [address] Care Team Providers Care Bi Specialist Name Role Phone Unavailable Primary Care Provider Unavailabl e Encounter Details Date Type Department Care Team (Latest Contact Info) Description 04/04/2020 Lab Requisition [facility] COVID Drive Through [address] [place] [address] [address] [place] [address] Benjy Allen PA-C [address] [place] [address] [id number] Encounter for laboratory testing for COVID-19 virus [...] Date/Time Associated Diagnosis Comments COVID-19 (SARS-COV-2) - [facility] LAB Routine 04/04/2020 11:13 AM EST Encounter for laboratory testing for COVID-19 virus [ICD-10-CM] documented in this encounter Results * COVID-19 (SARS-COV-2) ([facility]4) (04/04/2020 11:13 AM EST) COVID-19 RT-PCR NOT-DETECT ED Not-Detec gareth 04/07/2020 11:12 PM EST [facility] Comment:Interpretation: The viral RNA was not detected, making the COVID-19 diagnosis less likely. Clinical correlation is highly recommended.Final report signed by Jamie Toscano, Ph.D., [facility], Laboratory DirectorTests performed at [facility] Microbiology Nasopharyngeal swab / Unknown 04/04/2020 11:13 AM EST 04/04/2020 11:13 AM EST Narrative WELLINGTONReji LARIOS Dia ANTWON - 04/07/2020 11:12 PM EST Performed by [facility] [address] [place] [address], CLIA# [id number] and [place] License# [id number] Benjy Allen PA-C MICROBIOLOGY - GENERAL OR DERABLES Final Result JOHNNY KAPOOR documented in this encounter Visit Diagnoses Diagnosis Encounter for laboratory testing for COVID-19 virus documented in this encounter
[2024-08-18 16:12] LABS: MANUAL DIFF FLAG NO
[2024-08-18 16:26] LABS: Basophils Percent Auto 0.5 % (0-2); Eosinophils Absolute Auto 0.2 X10*3/uL (0.0-0.4); Hematocrit 46.6 % (42.0-52.0); Hemoglobin 16.1 g/dl (14.0-18.0); Imm Gran Abs Auto 0.02 X10*3/uL (0.00-0.03); Imm Gran Pct Auto 0.3 % (0.0-0.4); Lymphocytes Absolute Auto 1.9 X10*3/uL (1.2-4.9); Lymphocytes Percent Auto 24.9 % (20-40); Mean Corpuscular HGB Conc 34.5 g/dl (31.0-36.0); Mean Corpuscular Hemoglobin 30.3 pg (27.0-33.0); Mean Corpuscular Volume 87.8 fL (80.0-98.0); Mean Platelet Volume 10.3 fL (9.4-12.4); Monocytes Absolute Auto 0.7 X10*3/uL (0.1-1.2); Neutrophils Absolute Auto 4.8 x10*3/uL (2.0-8.3); Neutrophils Percent Auto 62.3 % (45-73); Platelet Count 199 X10*3/uL (160-400); Red Blood Count 5.31 X10*6/uL (4.60-5.80); White Blood Count 7.8 X10*3/uL (4.8-10.8)
[2024-08-18 16:32] LABS: Alanine Aminotransferase 53 U/L (0-40); Aspartate Amino Transferase 34 U/L (5-37)
== END 2024-08-18 14:44 | disposition home or self-care (01) ==
LOC: HO.HMGCLDS 14:43
PROVIDERS: PCP Internal Medicine; Visit Provider Internal Medicine Rheumatology
DX: Z79.899 Other long term (current) drug therapy (principal)
CPT/HCPCS: 36415; 84450; 84460; 84550; 85025

== ENCOUNTER 2024-08-29 08:37 | Outpatient (REF) | payer MEDICARE, OTHER, SELFPAY ==
--- OUTSIDE RECORDS SUMMARY | 2024-08-29 10:19 | XMS_ITS | Encounter Summary ---
Author Organization [facility] Address [address] [place] [address] Care Team Providers Care Financial Reporting Director Name Role Phone Unavailable Primary Care Provider Unavailabl e Encounter Details Date Type Department Care Team (Latest Contact Info) Description 04/04/2020 Lab Requisition [facility] COVID Drive Through [address] [place] [address] [address] [place] [address] Benjy Allen PA-C [address] [place] [address] [phone] Encounter for laboratory testing for COVID-19 virus [...] Date/Time Associated Diagnosis Comments COVID-19 (SARS-COV-2) - [facility] LAB Routine 04/04/2020 11:13 AM EST Encounter for laboratory testing for COVID-19 virus [ICD-10-CM] documented in this encounter Results * COVID-19 (SARS-COV-2) ([facility]) (04/04/2020 11:13 AM EST) COVID-19 RT-PCR NOT-DETECT ED Not-Detec gareth 04/07/2020 11:12 PM EST [facility] Comment:Interpretation: The viral RNA was not detected, making the COVID-19 diagnosis less likely. Clinical correlation is highly recommended.Final report signed by Jamie Toscano, Ph.D., [facility], Laboratory DirectorTests performed at [facility] [employer] Microbiology Nasopharyngeal swab / Unknown 04/04/2020 11:13 AM EST 04/04/2020 11:13 AM EST Narrative WELLINGTONReji LARIOS Dia ANTWON - 04/07/2020 11:12 PM EST Performed by [employer] [employer] [address] [place] [address], CLIA# [id number] and [place] License# [id number] Benjy Allen PA-C MICROBIOLOGY - GENERAL OR DERABLES Final Result JOHNNY KAPOOR documented in this encounter Visit Diagnoses Diagnosis Encounter for laboratory testing for COVID-19 virus documented in this encounter
--- OUTSIDE RECORDS SUMMARY | 2024-08-29 10:19 | XMS_ITS | Clinical Summary ---
Author Organization [facility] Address [address] [place] [address] Care Team Providers Care Mcat Tutor Name Role Phone Unavailable Primary Care Provider [...]
--- OUTSIDE RECORDS SUMMARY | 2024-08-29 10:19 | XMS_ITS | Encounter Summary ---
Author Organization [facility] Address [address] [place] [address] Care Team Providers Care Extractor Puller Name Role Phone Unavailable Primary Care Provider Unavailabl e Encounter Details Date Type Department Care Team (Latest Contact Info) Description 04/01/2020 Lab Requisition [facility] COVID Drive Through [address] [place] [address] [address] [place] [address] Benjy Allen PA-C [address] [place] [address] [phone] Encounter for laboratory testing for COVID-19 virus [...] Date/Time Associated Diagnosis Comments COVID-19 (SARS-COV-2) - [facility] LAB Routine 04/01/2020 1:56 PM EST Encounter for laboratory testing for COVID-19 virus [ICD-10-CM] documented in this encounter Results * COVID-19 (SARS-COV-2) (SEMA4) (04/01/2020 1:56 PM EST) COVID-19 RT-PCR NOT-DETECT ED Not-Detec gareth 04/03/2020 7:39 PM EST [facility] - [facility] Comment:Interpretation: The viral RNA was not detected, making the COVID-19 diagnosis less likely. Clinical correlation is highly recommended.Final report signed by Jamie Toscano, Ph.D., [facility], Laboratory DirectorTests performed at [employer] Microbiology Nasopharyngeal swab / Unknown 04/01/2020 1:56 PM EST 04/01/2020 1:56 PM EST Narrative WELLINGTONReji LARIOS Dia RAMSAYLISSETTE - 04/03/2020 7:39 PM EST Performed by [employer] [address] [place] [address], CLIA# [id number] and [place] License# [id number] Benjy Allen PA-C MICROBIOLOGY - GENERAL OR DERABLES Final Result JOHNNY KAPOOR documented in this encounter Visit Diagnoses Diagnosis Encounter for laboratory testing for COVID-19 virus documented in this encounter
--- OUTSIDE RECORDS SUMMARY | 2024-08-29 10:19 | XMS_ITS | Clinical Summary ---
Author Organization [address] Address [address] [place] [phone] Phone Care Team Providers Care Coiler Name Role Phone Anna Nathan MD Primary Care Provider [phone] Allergies Active Allergy Reactions Criticality Noted Date [...] S/p bilateral corneal transplant. Last on in [place]. Resolved Problems Problem Noted Date Diagnosed Date Resolved Date CKD (chronic kidney disease) stage 2, GFR 60-89 ml/min 10/19/2022 07/20/2024 Rhinitis 10/11/2012 07/12/2024 Overview (03/08/2024): Last Assessment & Plan: 1. Flonase 1 puff twice a day in each nostril 2. Zyrtec 10 mg p.o. every day Encounters Date Type Department Care Team Description 07/20/2024 8:30 AM EDT Office Visit Adult Medicine [address] [address] Anna Nathan MD Pre-diabetes (Primary Dx); Decreased [...] 0.5 mL or 0.25 mL dosage 03/16/2022 [email or web address] SARS-CoV-2 COVID-19, mRNA, LNP-S, preservative free 08/25/2021,07/29/2020,07/08/2020 [...] bilateral co rneal transplant. Last on in [place]. Pre-diabetes 04/24/2022 Vitamin B 12 deficiency 04/24/2022 [...] 8:15 AM EDT Office Visit Adult Medicine [address] [address] Anna Nathan MD [address] [place] [address] Health Maintenance Due Date Last Done Comments [...] LAB CHEMISTRY METHOD 08/16/2024 11:10 AM EDT [facility] Triglycerides 107 0 - 150 mg/dL LAB CHEMISTRY METHOD 08/16/2024 11:10 AM EDT [facility] HDL 53 >=40 mg/dL LAB CHEMISTRY METHOD 08/16/2024 11:10 AM EDT [facility] LDL Calculated 102(H) 0 - 100 mg/dL LAB CHEMISTRY METHOD 08/16/2024 11:10 AM EDT [facility] VLDL Cholesterol Issac 21.4 mg/dL LAB CHEMISTRY METHOD 08/16/2024 11:10 AM EDT [facility] Non HDL Chol. (LDL+VLDL) 123 <145 mg/dL LAB CHEMISTRY METHOD 08/16/2024 11:10 AM EDT [facility] Chol/HDL Ratio 3.3 0.0 - 4.4 LAB CHEMISTRY METHOD 08/16/2024 11:10 AM [facility] Blood Venous blood specimen / Unknown Venipuncture / Unknown 08/16/2024 7:43 AM EDT 08/16/2024 7:43 AM EDT us Anna Nathan MD LAB BLOOD ORDERABLES Final Resul t [facility] [address] [place] [address], * Hemoglobin A1c (08/16/2024 7:43 AM EDT) Hemoglobin A1C 5.8 <6.5 % LAB CHEMISTRY METHOD 08/16/2024 11:24 AM EDT [facility] Mean Bld Glu Estim. 120 mg/dL LAB CHEMISTRY METHOD 08/16/2024 11:24 AM EDT [facility] Blood Venous blood specimen / Unknown Venipuncture / Unknown 08/16/2024 7:43 AM EDT 08/16/2024 7:43 AM EDT Anna Nathan MD LAB BLOOD ORDERABLES Final Resul t [facility] [address] [place] [address], * Falls Risk Assessment (12/23/2023) Pathologist [facility] Falls Risk Assessment Abstracted Historical Provider HEALTH MAINTENANCE Final Result * Depression Screening (12/23/2023) Pathologist [facility] Depression Screening Abstracted Historical Provider HEALTH MAINTENANCE Final Result * Colonoscopy (01/27/2019) Pathologist [facility] Colonoscopy Abstracted, no interpretation Anatomical Region Laterality Modality Other Historical Provider HEALTH MAINTENANCE Final Result * Hepatitis C Screening (12/05/2016) Pathologist [facility] Hepatitis C Screening Abstracted Historical Provider HEALTH MAINTENANCE Final Result from Last 3 Months or Most Recently Relevant to Health Maintenance Insurance MEDICARE [facility] SH[place]AR CARTER [id number] Care Teams Coiler Relationship Specialty Start Date End Date Anna Nathan MD [address] [place] [address] PCP - General Internal Medicine 02/14/21
[2024-08-29 18:44] LABS: Aspartate Amino Transferase 34 U/L (5-37)
[2024-08-29 18:54] LABS: Alanine Aminotransferase 40 U/L (0-40)
== END 2024-08-29 08:38 | disposition home or self-care (01) ==
LOC: HO.HKASLDS 08:37
PROVIDERS: PCP Internal Medicine; Visit Provider Internal Medicine Rheumatology
DX: R74.01 Elevation of levels of liver transaminase levels (principal); M1A.09X0 Idiopathic chronic gout, multiple sites, without tophus (tophi); M19.041 Primary osteoarthritis, right hand; M17.9 Osteoarthritis of knee, unspecified; Z79.899 Other long term (current) drug therapy
CPT/HCPCS: 36415; 84450; 84460; 99212

== ENCOUNTER 2024-08-29 08:37 | Outpatient (AMB) | payer MEDICARE, OTHER, SELFPAY ==
[2024-08-29 08:40] VITALS: BP 130/80; PULSE 70; O2SAT 100; BMI 28.9
--- NOTE | 2024-08-29 08:40 | MHC.OFFVIS ---
Vital Signs 08/29/24 08:40 Height 5 ft 8 in Weight 190 lb 0.615 oz BMI 28.9 BP 130/80 Blood Pressure Location Lt brachial Position Sitting Pulse 70 Pulse Source Pulse Oximeter Pulse Oximetry (%) 100 Oxygen Delivery Method Room Air Intake Visit Reasons: 3 months Intake Note: Patient presents for gout follow up. Accompanied by: Self / Same As Patient Allergies No Known Allergies Allergy (Verified 08/29/24 08:40) HPI HPI 3 months: Details: He is going to PT he has had 4 sessions so far.. He is icing knees twice a day. He was able to play pickle ball 2 hours yesterday. He has to use one leg at a time when going down stairs when he gets out of knee. Avoiding alcohol and tylenol. PFSH Family History Father Prostate cancer Social History Household Members: Spouse Housing: House Alcohol intake: current Comment: Rare Patient Tobacco Use Status: Never used Tobacco Physical Exam Vital Signs: Last Vital Signs Pulse 70 08/29/24 08:40 BP 130/80 08/29/24 08:40 Pulse Ox 100 08/29/24 08:40 Oxygen Delivery Method Room Air 08/29/24 08:40 BMI result Body Mass Index 28.9 Const Other: General: Comfortable Skin: No lesions seen MSK: Heberden nodes present. Tender right 3rd DIPJ with Heberden node. Slight synovitis of right 3rd DIPJ. Good range of motion of upper extremity and lower extremity. Negative anterior and posterior drawer test right knee. Assessment & Plan Assessment & Plan (1) Gout: Comment: Presumed diagnosis. He takes allopurinol 300 mg daily and colchicine 0.6 mg daily. No recent flares. Last uric acid was 5.0, which is at goal. He also has mild transaminitis. Allopurinol can contribute to elevated liver function tests. He is avoiding alcohol, NSAIDs and acetaminophen. Code(s): M10.9 - Gout, unspecified Category: Medical Qualifiers: Gout site: multiple sites Gout etiology: unspecified cause Chronicity: chronic Qualified Code(s): M1A.09X0 - Idiopathic chronic gout, multiple sites, without tophus (tophi) Plan: Repeat LFTs this visit. If he continues to have transaminitis, I will order right upper quadrant ultrasound for further evaluation. Continue allopurinol 300 mg daily Continue colchicine 0.6 mg daily Return to clinic in 3 months (2) Transaminitis: Code(s): R74.01 - Elevation of levels of liver transaminase levels Category: Medical Plan: See above (3) Osteoarthritis, hand, primary localized: Comment: Julissa osteoarthritis. Clinical diagnosis. Right 3rd DIPJ osteoarthritis flare. X-ray bilateral hands May 2023 was normal. We discussed conservative management. Current pain is 2/10 intensity. Code(s): M19.049 - Primary osteoarthritis, unspecified hand Category: Medical Qualifiers: Laterality: right Qualified Code(s): M19.041 - Primary osteoarthritis, right hand Plan: After lab results are back if LFTs are normal, he will start using diclofenac gel 1% 3 to 4 times a day Can consider cortisone injection in the future if pain worsens (4) Osteoarthritis, knee: Comment: He recently started PT 2 weeks ago Code(s): M17.9 - Osteoarthritis of knee, unspecified Category: Medical Plan: Continue physical therapy If he continues to have right knee giving out on him after completing physical therapy, we will order MRI right knee for evaluation of meniscal tear (5) Other intermediate frame tender (current) drug therapy: Code(s): Z79.899 - Other skilled nursing (current) drug therapy Category: Medical Plan: See above Orders: Orders Alanine Aminotransferase Today R74.01 - Elevation of levels of liver transaminase levels Aspartate Amino Transferase Today R74.01 - Elevation of levels of liver transaminase levels Coding Level of Care Code Est Pt Level 4 (69761) Complex EM visit Add On G2211 Diagnoses Chronic gout of multiple sites, unspecified cause M1A.09X0 Gout site: multiple sites Gout etiology: unspecified cause Chronicity: chronic Transaminitis R74.01 Localized primary osteoarthritis of right hand M19.041 Laterality: right Osteoarthritis, knee M17.9 Other skilled nursing (current) drug therapy Z79.899
--- OUTSIDE RECORDS SUMMARY | 2024-08-29 08:51 | XMS_ITS | Encounter Summary ---
Author Organization [facility] Address [address] [place] [address] Care Team Providers Care Stock Control Clerk Name Role Phone Unavailable Primary Care Provider Unavailabl e Encounter Details Date Type Department Care Team (Latest Contact Info) Description 04/01/2020 Lab Requisition [facility] COVID Drive Through [address] [place] [address] [address] [place] [address] Benjy Allen PA-C [address] [place] [address] [phone] Encounter for laboratory testing for COVID-19 virus [...] Date/Time Associated Diagnosis Comments COVID-19 (SARS-COV-2) - [facility] LAB Routine 04/01/2020 1:56 PM EST Encounter for laboratory testing for COVID-19 virus [ICD-10-CM] documented in this encounter Results * COVID-19 (SARS-COV-2) ([facility]4) (04/01/2020 1:56 PM EST) COVID-19 RT-PCR NOT-DETECT ED Not-Detec gareth 04/03/2020 7:39 PM EST [facility] Comment:Interpretation: The viral RNA was not detected, making the COVID-19 diagnosis less likely. Clinical correlation is highly recommended.Final report signed by Jamie Toscano, Ph.D., [facility], Laboratory DirectorTests performed at [facility] [facility] Microbiology Nasopharyngeal swab / Unknown 04/01/2020 1:56 PM EST 04/01/2020 1:56 PM EST Narrative WELLINGTONReji LARIOS Dia RAMSAYLISSETTE - 04/03/2020 7:39 PM EST Performed by [facility] [facility]., [address] [place] [address], CLIA# [id number] and [place] License# [id number] Benjy Allen PA-C MICROBIOLOGY - GENERAL OR DERABLES Final Result JOHNNY KAPOOR documented in this encounter Visit Diagnoses Diagnosis Encounter for laboratory testing for COVID-19 virus documented in this encounter
--- OUTSIDE RECORDS SUMMARY | 2024-08-29 08:51 | XMS_ITS | Encounter Summary ---
Author Organization [facility] Address [address] [place] [address] Care Team Providers Care Latin American Studies Professor Name Role Phone Unavailable Primary Care Provider Unavailabl e Encounter Details Date Type Department Care Team (Latest Contact Info) Description 04/04/2020 Lab Requisition [facility] COVID Drive Through [address] [place] [address] [address] [place] [address] Benjy Allen PA-C [address] [place] [address] [phone] Encounter for laboratory testing for COVID-19 virus [...] Date/Time Associated Diagnosis Comments COVID-19 (SARS-COV-2) - [facility] LAB Routine 04/04/2020 11:13 AM EST Encounter for laboratory testing for COVID-19 virus [ICD-10-CM] documented in this encounter Results * COVID-19 (SARS-COV-2) ([facility]4) (04/04/2020 11:13 AM EST) COVID-19 RT-PCR NOT-DETECT ED Not-Detec gareth 04/07/2020 11:12 PM EST [facility] Comment:Interpretation: The viral RNA was not detected, making the COVID-19 diagnosis less likely. Clinical correlation is highly recommended.Final report signed by Jamie Toscano, Ph.D., [facility], Laboratory DirectorTests performed at [facility] Microbiology Nasopharyngeal swab / Unknown 04/04/2020 11:13 AM EST 04/04/2020 11:13 AM EST Narrative WELLINGTONReji LARIOS Dia ANTWON - 04/07/2020 11:12 PM EST Performed by [facility] [address] [place] [address], CLIA# [id number] and [place] License# [id number] Benjy Allen PA-C MICROBIOLOGY - GENERAL OR DERABLES Final Result JOHNNY KAPOOR documented in this encounter Visit Diagnoses Diagnosis Encounter for laboratory testing for COVID-19 virus documented in this encounter
--- OUTSIDE RECORDS SUMMARY | 2024-08-29 08:51 | XMS_ITS | Clinical Summary ---
Author Organization [facility] Address [address] [place] [address] Care Team Providers Care Labor Arbitrator Name Role Phone Unavailable Primary Care Provider [...]
--- OUTSIDE RECORDS SUMMARY | 2024-08-29 08:51 | XMS_ITS | Clinical Summary ---
Author Organization [address] Address [address] [place] [phone] Phone Care Team Providers Care Residence Supervisor Name Role Phone Anna Nathan MD Primary Care Provider [phone] Allergies Active Allergy Reactions Criticality Noted Date Comments Bee Venom Protein (Honey Bee) 2016 Medications ascorbic acid, vitamin C, 500 mg capsule [...] 1 Tablet by mouth daily. 5 Active famotidine (PEPCID) 20 mg tablet TAKE 1 TABLET BY MOUTH 2 TIMES DAILY. PRIOR TO MEALS 180 tablet 1 5 Active famotidine (PEPCID) 20 mg tablet TAKE 1 TABLET BY MOUTH 2 TIMES DAILY. PRIOR TO MEALS 180 tablet 1 4 025 Discontinued Active Problems Problem Noted Date [...] S/p bilateral corneal transplant. Last on in [place]. Resolved Problems Problem Noted Date Diagnosed Date Resolved Date CKD (chronic kidney disease) stage 2, GFR 60-89 ml/min 10/19/2022 07/20/2024 Rhinitis 10/11/2012 07/12/2024 Overview (03/08/2024): Last Assessment & Plan: 1. Flonase 1 puff twice a day in each nostril 2. Zyrtec 10 mg p.o. every day Encounters Date Type Department Care Team Description 07/20/2024 8:30 AM EDT Office Visit Adult Medicine [address] [address] Anna Nathan MD Pre-diabetes (Primary Dx); Decreased [...] 0.5 mL or 0.25 mL dosage 03/16/2022 [employer] SARS-CoV-2 COVID-19, mRNA, LNP-S, preservative free 08/25/2021,07/29/2020,07/08/2020 [...] bilateral co rneal transplant. Last on in [place]. Pre-diabetes 04/24/2022 Vitamin B 12 [...] 36.2 ??C (97.1 ??F) 07/20/2024 8:25 AM E DT Respiratory Rate 14 07/20/2024 8:25 AM EDT [...] 8:15 AM EDT Office Visit Adult Medicine [address] [address] Anna Nathan MD [address] [place] [address] Health Maintenance Due Date Last Done Comments [...] LAB CHEMISTRY METHOD 08/16/2024 11:10 AM EDT [facility] Triglycerides 107 0 - 150 mg/dL LAB CHEMISTRY METHOD 08/16/2024 11:10 AM EDT [facility] HDL 53 >=40 mg/dL LAB CHEMISTRY METHOD 08/16/2024 11:10 AM EDT [facility] LDL Calculated 102(H) 0 - 100 mg/dL LAB CHEMISTRY METHOD 08/16/2024 11:10 AM EDT [facility] VLDL Cholesterol Issac 21.4 mg/dL LAB CHEMISTRY METHOD 08/16/2024 11:10 AM EDT [facility] Non HDL Chol. (LDL+VLDL) 123 <145 mg/dL LAB CHEMISTRY METHOD 08/16/2024 11:10 AM EDT [facility] Chol/HDL Ratio 3.3 0.0 - 4.4 LAB CHEMISTRY METHOD 08/16/2024 11:10 AM [facility] Blood Venous blood specimen / Unknown Venipuncture / Unknown 08/16/2024 7:43 AM EDT 08/16/2024 7:43 AM EDT us Anna Nathan MD LAB BLOOD ORDERABLES Final Resul t [facility] [address] [place] [address], * Hemoglobin A1c (08/16/2024 7:43 AM EDT) Hemoglobin A1C 5.8 <6.5 % LAB CHEMISTRY METHOD 08/16/2024 11:24 AM EDT [facility] Mean Bld Glu Estim. 120 mg/dL LAB CHEMISTRY METHOD 08/16/2024 11:24 AM EDT [facility] Blood Venous blood specimen / Unknown Venipuncture / Unknown 08/16/2024 7:43 AM EDT 08/16/2024 7:43 AM EDT Anna Nathan MD LAB BLOOD ORDERABLES Final Resul t [facility] [address] [place] [address], * Falls Risk Assessment (12/23/2023) Pathologist [facility] Falls Risk Assessment Abstracted Historical Provider HEALTH MAINTENANCE Final Result * Depression Screening (12/23/2023) Pathologist [facility] Depression Screening Abstracted Historical Provider HEALTH MAINTENANCE Final Result * Colonoscopy (01/27/2019) Pathologist [facility] Colonoscopy Abstracted, no interpretation Anatomical Region Laterality Modality Other Historical Provider HEALTH MAINTENANCE Final Result * Hepatitis C Screening (12/05/2016) Pathologist [facility] Hepatitis C Screening Abstracted Historical Provider HEALTH MAINTENANCE Final Result from Last 3 Months or Most Recently Relevant to Health Maintenance Insurance MEDICARE [facility] SHANKAR CARTER [id number] Care Teams Residence Supervisor Relationship Specialty Start Date End Date Anna Nathan MD [address] [place] [address] PCP - General Internal Medicine 02/14/21
== END 2024-08-29 09:25 | disposition home or self-care (01) ==
LOC: HO.RHES 08:38
PROVIDERS: PCP Internal Medicine; Visit Provider Internal Medicine Rheumatology
DX: M1A.09X0 Idiopathic chronic gout, multiple sites, without tophus (tophi) (principal); R74.01 Elevation of levels of liver transaminase levels; M19.041 Primary osteoarthritis, right hand; M17.9 Osteoarthritis of knee, unspecified; Z79.899 Other long term (current) drug therapy
CPT/HCPCS: 99214; G2211

== ENCOUNTER 2024-09-19 15:00 | Outpatient (RCR) | payer MEDICARE, OTHER, SELFPAY ==
--- NOTE | 2024-08-17 14:07 | MHC.PT.EP ---
[facility] [place] Office [place] Office [place] Office [address] Mehul Reyes [address] [phone] F: [phone] F: [phone] F: [phone] F: [phone] Physical Therapy Plan of Care Date of Evaluation: 08/17/24 Date of Surgery: Diagnosis: This is 64 yo male presenting to skilled PT with a script for R knee pain. Assessment: This is 64 yo male presenting to skilled PT with a script for R knee pain. Patient reporting 25 years of R knee pain progressively getting worse since he turned 58 years old. Symptoms increase with descending stairs, in the AM and with squats. He reports the R knee is tight and weak (mainly at the joint lines) but also reports a general aching. The patient reports that his knee gives out 2-3 times a week as well. He reports improved symptoms with movement and exercise, he uses knee sleeves and bracing as needed, ice, theraroller and theragun as well. He has a long history of playing soccer until he was 57. Of note, he also reports B hip and L knee pain as well. He is very active at baseline and eats a low inflammatory diet. Currently, he does B KTC, butterfly stretches, glut squeezes, piriformis stretching, LTR with leg out in AM. He golfs 1x/wk, plays pickleball 2x/wk and has a gym membership which he primarily uses in the winter. Assessment reveals pain that ranges from up to a 2/10 at the worst. Patient demos good ROM of his knees and hips with only slight limitation in hip rotations as well as gastroc length, minimally reduced strength in the gluts with pain really during eccentric use only and decreased posture with forward head, posterior pelvic tile and rounded shoulders. Based on functional limitations, impaired QOL and pain tolerance patient is a good candidate for skilled PT 2x/wk for 2wks. Frequency and Duration: The patient will be seen 2x/wk for 2wks Short Term Goals: (in 1 weeks) Patient will demo good understanding and performance of quad set in multiple different planes without cues from PT Patient will be I in HEP Patient will demonstrate good understanding of eccentric control and HEP Senior Care Goals: (in 2 weeks) Patient will report 75% in knee buckling Patient will improve LEFs by 10 points Patient will report 50% improvement in descending stairs Patient will demo proper squat and lift techniques without increase in pain Treatment Plan: Modalities to reduce pain, spasms and effusion. Manual therapy to restore motion and function. Therapeutic exercise to improve strength and flexibility. Neuromuscular re-education for posture and balance. Therapeutic activities to return to functional activities of daily living. Electronically signed by: Viola Billingsley PT Please sign and return to therapist. Thank you for your referral.
--- NOTE | 2024-10-17 08:42 | MHC.PT.DC ---
[facility] [place] Office [place] Office [place] Office [address] Mehul Reyes [address] [phone] F: [phone] F: [phone] F: [phone] F: [phone] Physical Therapy Discharge Report Diagnosis: This is 64 yo male presenting to skilled PT with a script for R knee pain. Date of Surgery: Date of Evaluation: 08/17/24 Date of Discharge: 10/17/24 Treatments to Date: 8 Cancellations to Date: 0 No Shows to Date: 0 Discharge Status: Achieved Goals Improved Function Independent with HEP Recommend MD Follow-up Discharge Summary: 09/19: Patient has come to 8 sessions of PT. He is strong, demos good ROM and function. He understands the importance of exercising and has multiple HEPs plus is active with pickleball, golf, and swimming At this time no skilled PT is indicated at this time but he may want to touch base with an ortho or ? imaging to rule out why his knees have instability but are strong. Chart was closed after 30 days of not being in the clinic. Electronically signed by: Viola Billingsley PT Please sign and return to therapist. Thank you for your referral.
== END 2024-10-17 08:43 | disposition home or self-care (01) ==
LOC: HO.PTCHIC 15:00
PROVIDERS: PCP Internal Medicine; Visit Provider Internal Medicine Rheumatology
DX: M25.561 Pain in right knee (principal); M17.9 Osteoarthritis of knee, unspecified; M25.551 Pain in right hip; M25.552 Pain in left hip; M19.049 Primary osteoarthritis, unspecified hand
CPT/HCPCS: 97110; 97112; 97161

== ENCOUNTER 2024-10-19 11:42 | Outpatient (REF) | payer MEDICARE, OTHER, SELFPAY ==
--- OUTSIDE RECORDS SUMMARY | 2024-10-19 12:17 | XMS_ITS | Clinical Summary ---
Author Organization [address] Address [address] [place] [phone] Phone Care Team Providers Care Educational Resource Coordinator Name Role Phone Anna Nathan MD Primary Care Provider [phone] Allergies Active Allergy Reactions Criticality Noted Date Comments Bee Venom Protein (Honey Bee) 2016 Medications ascorbic acid, vitamin C, 500 mg capsule Take 1 capsule by mouth 1 (one) time each day. Active colchicine (COLCRYS) 0.6 mg tablet Take 1 tablet (0.6 mg total) by mouth 1 (one) time each day. 12/23/2023 Active tamsulosin (FLOMAX) 0.4 mg 24 hr capsule Take 1 capsule (0.4 mg total) by mouth at bedtime. Active multivitamin with minerals (CENTRUM) tablet Multiple Vitamins-Mine rals (Multivitamin Adults 50+) Tab Take 1 Tablet by mouth daily. Active pravastatin (PRAVACHOL) 40 mg tablet TAKE 1 TABLET BY MOUTH EVERY DAY 90 tablet 1 05/24/2024 Active allopurinoL (ZYLOPRIM) 100 mg tablet Take 3 tablets (300 mg total) by mouth 1 (one) time each day. Take 1 Tablet by mouth daily. 07/20/2024 Active famotidine (PEPCID) 20 mg tablet TAKE 1 TABLET BY MOUTH 2 TIMES DAILY. PRIOR TO MEALS 180 tablet 1 08/28/2024 Active Active Problems Problem Noted Date Diagnosed Date [...] S/p bilateral corneal transplant. Last on in [place]. [facility]. Resolved Problems Problem Noted Date Diagnosed Date Resolved Date CKD (chronic kidney disease) stage 2, GFR 60-89 ml/min 10/19/2022 07/20/2024 Rhinitis 10/11/2012 07/12/2024 Overview (03/08/2024): Last Assessment & Plan: 1. Flonase 1 puff twice a day in each nostril 2. Zyrtec 10 mg p.o. every day Encounters Date Type Department Care Team Description 07/20/2024 8:30 AM EDT Office Visit Adult Medicine [address] [address] Anna Nathan MD Pre-diabetes (Primary Dx); Decreased [...] 0.5 mL or 0.25 mL dosage 03/16/2022 Splashscore SARS-CoV-2 COVID-19, mRNA, LNP-S, preservative free 08/25/2021,07/29/2020,07/08/2020 [...] bilateral co rneal transplant. Last on in [place]. [facility]. Pre-diabetes 04/24/2022 Vitamin B 12 deficiency 04/24/2022 [...] 69 07/20/2024 8:25 AM EDT Temperature 36.2 C (97.1 F) 07/20/2024 8:25 AM EDT Respiratory Rate 14 07/20/2024 8:25 AM EDT [...] 8:15 AM EDT Office Visit Adult Medicine [facility] [address] [place] [address] Anna Nathan MD [address] [place] [address] Health Maintenance Due Date Last Done Comments Medicare Annual Wellness Visit 03/21/2022 Social Influencers of Health Screening 03/21/2022 COVID-19 Vaccine ( season) 2023 01/15/2023, 03/16/2022, 08/25/2021, Additional history exists Influenza Vaccine (#1) 2024 , 04/21/2021, 05/26/2019, Additional history exists Depression Screening 12/22/2024 12/23/2023 [...] Pneumococcal Vaccine: 50+ Years Completed 06/11/2023, 07/04/2001 HIB Vaccines Aged Out No longer eligi [...] LAB CHEMISTRY METHOD 08/16/2024 11:10 AM EDT [facility] Triglycerides 107 0 - 150 mg/dL LAB CHEMISTRY METHOD 08/16/2024 11:10 AM EDT [facility] HDL 53 >=40 mg/dL LAB CHEMISTRY METHOD 08/16/2024 11:10 AM EDT [facility] LDL Calculated 102(H) 0 - 100 mg/dL LAB CHEMISTRY METHOD 08/16/2024 11:10 AM EDT [facility] VLDL Cholesterol Issac 21.4 mg/dL LAB CHEMISTRY METHOD 08/16/2024 11:10 AM EDT [facility] Non HDL Chol. (LDL+VLDL) 123 <145 mg/dL LAB CHEMISTRY METHOD 08/16/2024 11:10 AM EDT [facility] Chol/HDL Ratio 3.3 0.0 - 4.4 LAB CHEMISTRY METHOD 08/16/2024 11:10 AM EDT [facility] Blood Venous blood specimen / Unknown Venipuncture / Unknown 08/16/2024 7:43 AM EDT 08/16/2024 7:43 AM EDT us Anna Nathan MD LAB BLOOD ORDERABLES Final Resul t [facility] [address] [place] [address], * Hemoglobin A1c (08/16/2024 7:43 AM EDT) Hemoglobin A1C 5.8 <6.5 % LAB CHEMISTRY METHOD 08/16/2024 11:24 AM EDT [facility] Mean Bld Glu Estim. 120 mg/dL LAB CHEMISTRY METHOD 08/16/2024 11:24 AM EDT [facility] Blood Venous blood specimen / Unknown Venipuncture / Unknown 08/16/2024 7:43 AM EDT 08/16/2024 7:43 AM EDT Anna Nathan MD LAB BLOOD ORDERABLES Final Resul t [facility] [address] [place] [address], [place] [phone] * Falls Risk Assessment (12/23/2023) Pathologist [facility] Falls Risk Assessment Abstracted Historical Provider HEALTH MAINTENANCE Final Result * Depression Screening (12/23/2023) Pathologist [facility] Depression Screening Abstracted Historical Provider HEALTH MAINTENANCE Final Result * Colonoscopy (01/27/2019) [facility] Colonoscopy Abstracted, no interpretation Anatomical Region Laterality Modality Other Historical Provider HEALTH MAINTENANCE Final Result * Hepatitis C Screening (12/05/2016) Pathologist [facility] Hepatitis C Screening Abstracted Historical Provider HEALTH MAINTENANCE Final Result from Last 3 Months or Most Recently Relevant to Health Maintenance Insurance MEDICARE [facility] Care Teams Educational Resource Coordinator Relationship Specialty Start Date End Date Anna Nathan MD [address] [place] [address] PCP - General Internal Medicine 02/14/21
--- OUTSIDE RECORDS SUMMARY | 2024-10-19 12:17 | XMS_ITS | Encounter Summary ---
Author Organization [facility] Address [address] [place] [address] Care Team Providers Care Physician/Internist Name Role Phone Unavailable Primary Care Provider Unavailabl e Encounter Details Date Type Department Care Team (Latest Contact Info) Description 04/01/2020 Lab Requisition [facility] COVID Drive Through [address] [place] [address] [address] [place] [address] Benjy Allen PA-C [address] [place] [phone] Encounter for laboratory testing for COVID-19 virus [...] Date/Time Associated Diagnosis Comments COVID-19 (SARS-COV-2) - [facility] Routine 04/01/2020 1:56 PM EST Encounter for laboratory testing for COVID-19 virus [ICD-10-CM] documented in this encounter Results * COVID-19 (SARS-COV-2) ([facility]) (04/01/2020 1:56 PM EST) COVID-19 RT-PCR NOT-DETECT ED Not-Detec gareth 04/03/2020 7:39 PM EST [facility] Comment:Interpretation: The viral RNA was not detected, making the COVID-19 diagnosis less likely. Clinical correlation is highly recommended.Final report signed by Jamie Toscano, Ph.D., [facility], Laboratory DirectorTests performed at [facility] Nasopharyngeal swab / Unknown 04/01/2020 1:56 PM EST 04/01/2020 1:56 PM EST Narrative WELLINGTONReji LARIOS Dia RAMSAYLISSETTE - 04/03/2020 7:39 PM EST Performed by [facility] [address] [place] [address], CLIA# [id number] and [place] License# [id number] Benjy Allen PA-C MICROBIOLOGY - GENERAL OR DERABLES Final Result JOHNNY KAPOOR documented in this encounter Visit Diagnoses Diagnosis Encounter for laboratory testing for COVID-19 virus documented in this encounter
[2024-10-19 15:05] LABS: Alanine Aminotransferase 39 U/L (0-40); Aspartate Amino Transferase 29 U/L (5-37); Uric Acid 4.8 mg/dL (3.4-7.0)
== END 2024-10-19 11:43 | disposition home or self-care (01) ==
LOC: HO.HMGCLDS 11:42
PROVIDERS: PCP Internal Medicine; Visit Provider Internal Medicine Rheumatology
DX: R74.01 Elevation of levels of liver transaminase levels (principal); M1A.09X0 Idiopathic chronic gout, multiple sites, without tophus (tophi)
CPT/HCPCS: 36415; 84450; 84460; 84550

== ENCOUNTER 2024-11-30 09:11 | Outpatient (REF) | payer MEDICARE, OTHER, SELFPAY ==
[2024-11-30 16:59] LABS: Uric Acid 5.2 mg/dL (3.4-7.0)
== END 2024-11-30 09:12 | disposition home or self-care (01) ==
LOC: HO.HMGCLDS 09:11
PROVIDERS: PCP Internal Medicine; Visit Provider Internal Medicine Rheumatology
DX: M1A.09X0 Idiopathic chronic gout, multiple sites, without tophus (tophi) (principal); M17.11 Unilateral primary osteoarthritis, right knee; R74.01 Elevation of levels of liver transaminase levels; M25.561 Pain in right knee; G89.29 Other chronic pain; Z79.899 Other long term (current) drug therapy
CPT/HCPCS: 36415; 84550; 99212

== ENCOUNTER 2024-11-30 09:11 | Outpatient (AMB) | payer MEDICARE, OTHER, SELFPAY ==
--- NOTE | 2024-11-30 09:22 | MHC.OFFVIS ---
Vital Signs 11/30/24 09:25 Height 5 ft Weight 188 lb 4.396 oz BMI 36.8 BP 120/90 H Blood Pressure Location Lt brachial Position Sitting Pulse 69 Pulse Source Pulse Oximeter Pulse Oximetry (%) 97 Oxygen Delivery Method Room Air Intake Visit Reasons: 3 months f/u Intake Note: Patient presents for gout follow up. Accompanied by: Self / Same As Patient Allergies No Known Allergies Allergy (Verified 11/30/24 09:23) HPI HPI 3 months f/u: Details: Completed PT. R knee wilma more than L knee. It occurs a few times a day. Knees feel weak. He continues to do PT exercises daily. He plays pickleball and continues to feel weakness. He is taking allopurinol 250 mg daily. He discontinued colchicine after last visit. PFSH Family History Father Prostate cancer Social History Household Members: Spouse Housing: House Alcohol intake: current Comment: Rare Patient Tobacco Use Status: Never used Tobacco Physical Exam Vital Signs: Last Vital Signs Pulse 69 11/30/24 09:25 BP 120/90 H 11/30/24 09:25 Pulse Ox 97 11/30/24 09:25 Oxygen Delivery Method Room Air 11/30/24 09:25 BMI result Body Mass Index 36.8 Const Other: General: Comfortable Skin: No lesions seen MSK: Heberden nodes present. No synovitis. No tophus. Good range of motion of upper extremity and lower extremity. Negative anterior and posterior drawer test right knee. Negative Anh and Thessaly test. Assessment & Plan Assessment & Plan (1) Gout: Comment: Presumed diagnosis. Controlled on allopurinol 250 mg daily. No recent flares. His last uric acid level was 4.8, which is at goal when he was taking allopurinol 300 mg daily. He recently self decreased to 250 mg daily. He had remote transaminitis, which has resolved on recent testing. His uric acid level goal is less than 5 to prevent flares. Code(s): M10.9 - Gout, unspecified Category: Medical Qualifiers: Chronicity: chronic Gout etiology: unspecified cause Gout site: multiple sites Qualified Code(s): M1A.09X0 - Idiopathic chronic gout, multiple sites, without tophus (tophi) Plan: Continue allopurinol 250 mg daily Uric acid level ordered Return to clinic in 3 months (2) Transaminitis: Code(s): R74.01 - Elevation of levels of liver transaminase levels Category: Medical Plan: See above (3) Other technician terminal and repeater (current) drug therapy: Code(s): Z79.899 - Other technician terminal and repeater (current) drug therapy Category: Medical Plan: See above (4) Knee pain, right: Comment: Chronic buckling, knee giving out on him, weakness. Failed physical therapy. Prior to physical therapy failed a home exercise program developed by his daughter who is in sports Medicine. His pain is controlled. X-ray right knee 07/16/2022 was normal. He has an unremarkable exam. His symptoms of buckling and giving out on him, which are concerning for ligament injury. I will be ordering an MRI for further evaluation. Code(s): M25.561 - Pain in right knee Category: Medical Qualifiers: Chronicity: chronic Qualified Code(s): M25.561 - Pain in right knee; G89.29 - Other chronic pain Plan: MRI right knee without contrast ordered. If MRI reveals ligament injury/tear, he will be referred to orthopedic surgery for further evaluation Return to clinic in 3 months Orders: Orders MR knee RT wo con Today M17.9 - Osteoarthritis of knee, unspecified Uric Acid Today M1A.09X0 - Idiopathic chronic gout, multiple sites, without tophus (tophi), Z79.899 - Other group home (current) drug therapy Coding Level of Care Code Est Pt Level 4 (05596) Complex EM visit Add On G2211 Diagnoses Chronic gout of multiple sites, unspecified cause M1A.09X0 Chronicity: chronic Gout etiology: unspecified cause Gout site: multiple sites Transaminitis R74.01 Other technician terminal and repeater (current) drug therapy Z79.899 Chronic pain of right knee M25.561; G89.29 Chronicity: chronic
[2024-11-30 09:25] VITALS: BP 120/90; PULSE 69; O2SAT 97; BMI 36.8
--- OUTSIDE RECORDS SUMMARY | 2024-11-30 10:15 | XMS_ITS | Encounter Summary ---
Author Organization [facility] Address [address] [place] [address] Care Team Providers Care Weatherization Field Technician Name Role Phone Unavailable Primary Care Provider Unavailabl e Encounter Details Date Type Department Care Team (Latest Contact Info) Description 04/01/2020 Lab Requisition [facility] COVID Drive Through [address] [place] [address] [address] [place] [address] Benjy Allen PA-C [address] [place] [phone] Encounter for laboratory testing for COVID-19 virus [...] Date/Time Associated Diagnosis Comments COVID-19 (SARS-COV-2) - [facility] Routine 04/01/2020 1:56 PM EST Encounter for laboratory testing for COVID-19 virus [ICD-10-CM] documented in this encounter Results * COVID-19 (SARS-COV-2) ([facility]) (04/01/2020 1:56 PM EST) COVID-19 RT-PCR NOT-DETECT ED Not-Detec gareth 04/03/2020 7:39 PM EST [facility] Comment:Interpretation: The viral RNA was not detected, making the COVID-19 diagnosis less likely. Clinical correlation is highly recommended.Final report signed by Jamie Toscano, Ph.D., [facility], Laboratory DirectorTests performed at [facility] Nasopharyngeal swab / Unknown 04/01/2020 1:56 PM EST 04/01/2020 1:56 PM EST Narrative WELLINGTONReji LARIOS Dia RAMSAYLISSETTE - 04/03/2020 7:39 PM EST Performed by [facility] [address] [place] [address], CLIA# [id number] and [place] License# [id number] Benjy Allen PA-C MICROBIOLOGY - GENERAL OR DERABLES Final Result JOHNNY KAPOOR documented in this encounter Visit Diagnoses Diagnosis Encounter for laboratory testing for COVID-19 virus documented in this encounter
--- OUTSIDE RECORDS SUMMARY | 2024-11-30 10:15 | XMS_ITS | Clinical Summary ---
Author Organization [address] Address [address] [place] [phone] Phone Care Team Providers Care Clock Assembler Name Role Phone Anna Nathan MD Primary Care Provider [phone] Allergies Active Allergy Reactions Criticality Noted Date [...] Take 1 Tablet by mouth daily. Active allopurinoL (ZYLOPRIM) 100 mg tablet Take 3 tablets (300 mg total) by mouth 1 (one) time each day. Take 1 Tablet by mouth daily. 5 Active famotidine (PEPCID) 20 mg tablet TAKE 1 TABLET BY MOUTH 2 TIMES DAILY. PRIOR TO MEALS 180 tablet 1 5 Active pravastatin (PRAVACHOL) 40 mg tablet TAKE 1 TABLET BY MOUTH EVERY DAY 90 tablet 1 5 Active pravastatin (PRAVACHOL) 40 mg tablet TAKE 1 TABLET BY MOUTH EVERY DAY 90 tablet 1 5 025 Discontinued Active Problems Problem Noted Date [...] S/p bilateral corneal transplant. Last on in [place]. [facility]. Resolved Problems Problem Noted Date Diagnosed Date [...] bilateral co rneal transplant. Last on in [place]. [facility]. Pre-diabetes 04/24/2022 Vitamin B 12 deficiency 04/24/2022 [...] 8:15 AM EDT Office Visit Adult Medicine [facility] [address] [place] [address] Anna Nathan MD [address] [place] [address] Health Maintenance Due Date Last Done Comments Medicare Annual Wellness Visit 03/21/2022 Social Influencers of Health Screening 03/21/2022 COVID-19 Vaccine ( season) 2023 01/15/2023, 03/16/2022, 08/25/2021, Additional history exists Depression Screening 04/12/2024 12/23/2023 Influenza Vaccine (#1) 2024 , 04/21/2021, 05/26/2019, Additional history exists Falls Risk Assessment 12/22/2024 12/23/2023 Colorectal Cancer [...] Procedure Name Priority Date/Time Associated Diagnosis Comments LIPID PANEL WITH REFLEX TO DIRECT LDL [...] LAB CHEMISTRY METHOD 08/16/2024 11:[address] [facility] Triglycerides 107 0 - 150 mg/dL LAB CHEMISTRY METHOD 08/16/2024 11:[address] [facility] HDL 53 >=40 mg/dL LAB CHEMISTRY METHOD 08/16/2024 11:[address] [facility] LDL Calculated 102(H) 0 - 100 mg/dL LAB CHEMISTRY METHOD 08/16/2024 11:[address] [facility] VLDL Cholesterol Issac 21.4 mg/dL LAB CHEMISTRY METHOD 08/16/2024 11:[address] [facility] Non HDL Chol. (LDL+VLDL) 123 <145 mg/dL LAB CHEMISTRY METHOD 08/16/2024 11:[address] [facility] Chol/HDL Ratio 3.3 0.0 - 4.4 LAB CHEMISTRY METHOD 08/16/2024 11:[address] [facility] Blood Venous blood specimen / Unknown Venipuncture / Unknown 08/16/2024 7:43 AM EDT 08/16/2024 7:43 AM EDT Anna Nathan MD LAB BLOOD ORDERABLES Final Resul t [facility] [address] [place] [address], [place] [phone] * Falls Risk Assessment (12/23/2023) [facility] Falls Risk Assessment Abstracted [facility] Provider HEALTH MAINTENANCE Final Result * Depression Screening (12/23/2023) [facility] Depression Screening Abstracted [facility] Provider HEALTH MAINTENANCE Final Result * Colonoscopy (01/27/2019) [facility] Colonoscopy Abstracted, no interpretation Anatomical Region Laterality Modality Other [facility] Provider HEALTH MAINTENANCE Final Result * Hepatitis C Screening (12/05/2016) [facility] Hepatitis C Screening Abstracted [facility] Provider HEALTH MAINTENANCE Final Result from Last 3 Months or Most Recently Relevant to Health Maintenance Insurance MEDICARE [facility] Care Teams Clock Assembler Relationship Specialty Start Date End Date Anna Nathan MD [address] [place] [address] PCP - General Internal Medicine 02/14/21
--- OUTSIDE RECORDS SUMMARY | 2024-11-30 10:15 | XMS_ITS | Clinical Summary ---
Author Organization [facility] Address [address] [facility] [address] [place] [address] Phone Care Team Providers Care Arcade Games Mechanic Name Role Phone Anna Nathan MD Primary Care Provider [phone] Encounters Date Type Department Care Team Description 09/25/2024 12:45 PM EDT Office Visit [facility] [address] [place] [address] Cathy Delgado NP Elevated PSA (Primary Dx) from Last 3 Months Social History Tobacco Use Types Packs/Day Years Used Date Smoking Tobacco: Never Assessed Education Answer Date Recorded Are you interested in more education? Not on garth e 07/22/2023 Are you concerned about learning? Not on file 07/22/2023 No 07/22/2023 No 07/22/2023 Digital Access Answer Date Recorded No 07/22/2023 No 07/22/2023 Reliable internet access at home? Not on file 07/22/2023 Device with a working camera? Not on file Sex and Gender Information Value Date Recorded Sex Assigned at Male 07/20/2023 3:15 PM EDT Legal Sex Male 3:05 PM EDT Gender Identity Male 07/20/2023 3:15 PM EDT Sexual Orientation Straight 07/20/2023 3: 15 PM EDT Plan of Treatment Upcoming Encounters Date Type Department Care Team (Late st Contact Info) Description 03/26/2025 2:15 PM EST Office Visit [facility] [address] [place] [address] Cathy Delgado NP [address] [place] [address] [email or web address] Health Maintenance Due Date Last Done Comments DEPRESSION SCREENING 1970 SMOKING Hx and SMOKELESS TOBACCO SCREENING 1971 HEPATITIS C SCREENING 1976 COLOGUARD 2003 COLONOSCOPY 2003 COLORECTAL CANCER SCREENING 2003 FIT TEST 2003 FOBT 2003 SIGMOIDOSCOPY 2003 VIRTUAL COLONOSCOPY 2003 PNEUMOCOCCAL VACCINES (50+ years) (1 of 1 - PCV) 2008 ZOSTER VACCINES (1 of 2) 2008 COVID-19 VACCINE (1 - 2023-2 5 season) 2023 LIPID PANEL 08/16/2029 08/16/2024, 07/05/2023 Adult Td,Tdap Booster 10/05/2032 10/05/2022 , 04/18/2013 RSV VACCINE (1 - 1-dose 75+ series) 2033 HEPATITIS A VACCINES Aged Out No long er eligible based on patient's age to complete this topic HIB VACCINES Aged Out No longer eligi ble based on patient's age to complete this topic MENINGOCOCCAL VACCINES (ACWY) Aged Out No longer eligible based on patient's age to complete this topic MENINGOCOCCAL VACCINES (B) Aged Out N o longer eligible based on patient's age to complete this topic Medical Devices Not on file Insurance MEDICARE PART A & B [facility] [employer] MEDICARE SUPPLEMENT MEDICARE PART A & B [facility] [employer] MEDICARE SUPPLEMENT MEDICARE PART A & B [employer] MEDICARE SUPPLEMENT MEDICARE PART A & B [employer] MEDICARE SUPPLEMENT [facility] [employer] MEDICARE SUPPLEMENT MEDICARE PART A & B [facility] [employer] MEDICARE SUPPLEMENT Care Teams Arcade Games Mechanic Relationship Specialty Start Date End Date Anna Nathan MD [address] [place] [address] PCP - General Internal Medicine 07/20/23 Additional Source Comments The information contained in this document represents components of the legal health record. It is not the complete legal health record.[facility]
== END 2024-11-30 10:01 | disposition home or self-care (01) ==
LOC: HO.RHES 09:11
PROVIDERS: PCP Internal Medicine; Visit Provider Internal Medicine Rheumatology
DX: M1A.09X0 Idiopathic chronic gout, multiple sites, without tophus (tophi) (principal); R74.01 Elevation of levels of liver transaminase levels; Z79.899 Other long term (current) drug therapy; M25.561 Pain in right knee; G89.29 Other chronic pain
CPT/HCPCS: 99214; G2211

== ENCOUNTER 2024-12-17 09:46 | Outpatient (REF) | payer MEDICARE, OTHER, SELFPAY ==
--- NOTE | ~2024-12-17 | MR_ITS ---
CLINICAL HISTORY: M17.9 - Osteoarthritis of knee, unspecified --- Additional Notes or Special Instructions: Evaluation for ligament injury. Knee wilma. Failed PT. MR right knee without gadolinium Comparison: CR/SR - XR KNEE 1-2 VIEWS LEFT - 06/01/24 10:41 EST CR/SR - XR KNEE 1-2 VIEWS RIGHT - 06/01/24 10:39 EST Findings: No acute fracture or pathologic bone lesion. There is a localized fissure involving the medial patellar articular cartilage associated with small subchondral cysts. There is a small patellofemoral joint effusion. All ligaments are intact. No disruption of the patellar retinacula or iliotibial band. The quadriceps and patellar tendons are intact. There is a chronic appearing degenerative tear of the posterior horn of the medial meniscus. The lateral meniscus is normal. The anterior horn is intact. IMPRESSION: 1. There is a small patellofemoral joint effusion. 2. There is a localized fissure involving the medial patellar articular cartilage associated with small subchondral cysts. 3. There is a chronic appearing degenerative tear of the posterior horn of the medial meniscus. This document has been electronically signed by: Collins Weems MD on 12/18/2024 11:37:49
--- OUTSIDE RECORDS SUMMARY | 2024-12-17 09:48 | XMS_ITS | Encounter Summary ---
Author Organization [facility] Address [address] [place] [address] Care Team Providers Care Overlock Sleeve Setter Name Role Phone Unavailable Primary Care Provider Unavailabl e Encounter Details Date Type Department Care Team (Latest Contact Info) Description 04/01/2020 Lab Requisition [facility] COVID Drive Through [address] [place] [address] [address] [place] [address] Benjy Allen PA-C [address] [place] [phone] Encounter for laboratory testing for COVID-19 virus [...] Date/Time Associated Diagnosis Comments COVID-19 (SARS-COV-2) - [facility] Routine 04/01/2020 1:56 PM EST Encounter for laboratory testing for COVID-19 virus [ICD-10-CM] documented in this encounter Results * COVID-19 (SARS-COV-2) ([facility]) (04/01/2020 1:56 PM EST) COVID-19 RT-PCR NOT-DETECT ED Not-Detec gareth 04/03/2020 7:39 PM EST [facility] Comment:Interpretation: The viral RNA was not detected, making the COVID-19 diagnosis less likely. Clinical correlation is highly recommended.Final report signed by Jamie Toscano, Ph.D., [facility], Laboratory DirectorTests performed at [facility] Nasopharyngeal swab / Unknown 04/01/2020 1:56 PM EST 04/01/2020 1:56 PM EST Narrative WELLINGTONReji LARIOS Dia RAMSAYLISSETTE - 04/03/2020 7:39 PM EST Performed by [facility] [address] [place] [address], CLIA# [id number] and [place] License# [id number] Benjy Allen PA-C MICROBIOLOGY - GENERAL OR DERABLES Final Result JOHNNY KAPOOR documented in this encounter Visit Diagnoses Diagnosis Encounter for laboratory testing for COVID-19 virus documented in this encounter
--- OUTSIDE RECORDS SUMMARY | 2024-12-17 09:49 | XMS_ITS | Clinical Summary ---
Author Organization [address] Address [address] [place] [phone] Phone Care Team Providers Care Business Education Professor Name Role Phone Anna Nathan MD Primary Care Provider [phone] Allergies Active Allergy Reactions Criticality Noted Date [...] S/p bilateral corneal transplant. Last on in [place]. [facility]. Resolved Problems Problem Noted Date Diagnosed Date [...] bilateral co rneal transplant. Last on in [place]. [facility]. Pre-diabetes 04/24/2022 Vitamin B 12 deficiency 04/24/2022 [...] 8:15 AM EDT Office Visit Adult Medicine [facility] [address] [place] [address] Anna Nathan MD [address] [place] [address] Health Maintenance Due Date Last Done Comments Medicare Annual Wellness Visit 03/21/2022 Social Influencers of Health Screening 03/21/2022 Depression Screening 04/12/2024 12/23/2023 COVID-19 Vaccine ( season) 2024 01/15/2023, 03/16/2022, 08/25/2021, Additional history exists Influenza [...] LAB CHEMISTRY METHOD 08/16/2024 11:10 AM EDT [facility] Triglycerides 107 0 - 150 mg/dL LAB CHEMISTRY METHOD 08/16/2024 11:10 AM EDT [facility] HDL 53 >=40 mg/dL LAB CHEMISTRY METHOD 08/16/2024 11:10 AM EDT [facility] LDL Calculated 102(H) 0 - 100 mg/dL LAB CHEMISTRY METHOD 08/16/2024 11:10 AM EDT [facility] VLDL Cholesterol Issac 21.4 mg/dL LAB CHEMISTRY METHOD 08/16/2024 11:10 AM EDT [facility] Non HDL Chol. (LDL+VLDL) 123 <145 mg/dL LAB CHEMISTRY METHOD 08/16/2024 11:10 AM EDT [facility] Chol/HDL Ratio 3.3 0.0 - 4.4 LAB CHEMISTRY METHOD 08/16/2024 11:10 AM EDT [facility] Blood Venous blood specimen / Unknown Venipuncture / Unknown 08/16/2024 7:43 AM EDT 08/16/2024 7:43 AM EDT Anna Nathan MD LAB BLOOD ORDERABLES Final Resul t [facility] [address] [place] [address], [place] [phone] * Falls Risk Assessment (12/23/2023) [facility] Falls Risk Assessment Abstracted [facility] Provider HEALTH MAINTENANCE Final Result * Depression Screening (12/23/2023) [facility] Depression Screening Abstracted [facility] Provider HEALTH MAINTENANCE Final Result * Colonoscopy (01/27/2019) [facility] Colonoscopy Abstracted, no interpretation Anatomical Region Laterality Modality Other [facility] Provider HEALTH MAINTENANCE Final Result * Hepatitis C Screening (12/05/2016) [facility] Hepatitis C Screening Abstracted [facility] [place] [facility]IN[facility] Final Result from Last 3 Months or Most Recently Relevant to Health Maintenance Insurance MEDICARE [facility] Care Teams Business Education Professor Relationship Specialty Start Date End Date Anna Nathan MD [address] [place] [address] PCP - General Internal Medicine 02/14/21
--- OUTSIDE RECORDS SUMMARY | 2024-12-17 09:49 | XMS_ITS | Clinical Summary ---
Author Organization [facility] Address [address] [facility] [address] [place] [phone] Phone Care Team Providers Care Baggage Handling Supervisor Name Role Phone Anna Nathan MD Primary Care Provider [phone] Encounters Date Type Department Care Team Description 09/25/2024 12:45 PM EDT Office Visit [facility] [address] [place] [address] Cathy Delgado NP Elevated PSA (Primary Dx) [...] Description 03/26/2025 2:15 PM EST Office Visit [facility] [address] [place] [address] Cathy Delgado NP [address] [place] [address] [email or web address] Health Maintenance Due Date Last Done Comments DEPRESSION SCREENING 1970 SMOKING Hx and SMOKELESS TOBACCO SCREENING 1971 HEPATITIS C SCREENING 1976 COLOGUARD 2003 COLONOSCOPY 2003 COLORECTAL CANCER SCREENING 2003 FIT TEST 2003 FOBT 2003 SIGMOIDOSCOPY 2003 VIRTUAL COLONOSCOPY 2003 PNEUMOCOCCAL VACCINES (50+ years) (1 of 1 - PCV) 2008 ZOSTER VACCINES (1 of 2) 2008 INFLUENZA VACCINE (#1) 2024 12/23/2023 COVID-19 VACCINE (1 - 2023-2 5 season) 2024 LIPID PANEL 08/16/2029 08/16/2024, 07/05/2023 Adult Td,Tdap [...] this topic Medical Devices Not on file Procedures Procedure Name Priority Date/Time Associated Diagnosis Comments OUTSIDE LAB 12/15/2024 OUTSIDE LAB 12/06/2024 from Last 3 Months Results * Outside Lab (12/15/2024) Only the most recent of2 resultswithin the time period is included. us Scanning Interface Provider LAB BLOOD ORDERABLES Final Result from Last [place] [id number] MEDICARE PART A & B [employer] MEDICARE SUPPLEMENT MEDICARE PART A & B [employer] MEDICARE SUPPLEMENT [facility] MEDICARE [facility]PPLEMENT [facility] EXTENSION MEDICARE SUPPLEMENT MEDICARE PART A & B [facility] EXTENSION MEDICARE SUPPLEMENT MEDICARE PART A & B [facility] EXTENSION MEDICARE SUPPLEMENT Care Teams Baggage Handling Supervisor Relationship Specialty Start Date End Date Anna Nathan MD [address] [place] [address] PCP - General Internal Medicine 07/20/23 Additional Source Comments The information contained in this document represents components of the legal health record. It is not the complete legal health record.[facility]
--- OUTSIDE RECORDS SUMMARY | 2024-12-17 09:49 | XMS_ITS | Clinical Summary ---
Author Organization [facility] Address [address] [place] [address] Care Team Providers Care Driller Brake Lining Name Role Phone Unavailable Primary Care Provider Unavailabl e Social History Tobacco Use Types Packs/Day Years Used Date Smoking Tobacco: Never Assessed Sex and Gender Information Value Date Recorded Sex Assigned at Not on file Legal Sex Male 6:18 PM EDT Gender Identity Not on file Sexual Orientation Not on file Plan of Treatment Health Maintenance Due Date Last Done Comments Advance Care Planning 1960 Hepatitis C Virus Screening 1960 DTaP/Tdap/Td Vaccines (1 - Tdap) 1977 Pneumococcal Vaccines 50+ (1 of 1 - PCV) 2008 Zoster (Shingles) Vaccine (1 of 2) 2008 COVID-19 Vaccine ( - 2023-2 5 season) 2024 RSV Vaccine 60 years and old er and Patients (1 - 1-dose 75+ series) 2033 Hepatitis B Vaccines Aged Out No long er eligible based on patient's age to complete this topic
--- OUTSIDE RECORDS SUMMARY | 2024-12-17 09:49 | XMS_ITS | Encounter Summary ---
Author Organization [facility] Address [address] [place] [id number] Care Team Providers Care Bathroom Tiling Professional Name Role Phone Unavailable Primary Care Provider Unavailabl e Encounter Details Date Type Department Care Team (Latest Contact Info) Description 04/04/[address] [facility] [address] [place] [address] [address] [place] [address] Benjy Allen PA-C [address] [place] [id number] Encounter for laboratory testing for COVID-19 virus [...] Date/Time Associated Diagnosis Comments COVID-19 (SARS-COV-2) - [facility] Routine 04/04/2020 11:13 AM EST Encounter for laboratory testing for COVID-19 virus [ICD-10-CM] documented in this encounter Results * COVID-19 (SARS-COV-2) ([facility]) (04/04/2020 11:13 AM EST) COVID-19 RT-PCR NOT-DETECT ED Not-Detec gareth 04/07/2020 11:[address] [facility] Comment:Interpretation: The viral RNA was not detected, making the COVID-19 diagnosis less likely. Clinical correlation is highly recommended.Final report signed by Jamie Toscano, Ph.D., [facility], Laboratory DirectorTests performed at [facility] [facility] Microbiology Nasopharyngeal swab / Unknown 04/04/2020 11:13 AM EST 04/04/2020 11:13 AM EST Narrative [facility] LARIOS Dia [facility] - 04/07/2020 11:12 PM EST Performed by [employer]., [address] [place] [address], CLIA# [id number] and [place] License# [id number] Benjy Allen PA-C MICROBIOLOGY - GENERAL OR DERABLES Final Result JOHNNY KAPOOR documented in this encounter Visit Diagnoses Diagnosis Encounter for laboratory testing for COVID-19 virus documented in this encounter
== END 2024-12-17 09:47 | disposition home or self-care (01) ==
LOC: HO.MRI 09:46
PROVIDERS: PCP Internal Medicine; Visit Provider Internal Medicine Rheumatology
DX: M17.9 Osteoarthritis of knee, unspecified (principal)
CPT/HCPCS: 73721

== ENCOUNTER 2025-01-23 14:52 | Outpatient (AMB) | payer MEDICARE, OTHER, SELFPAY ==
--- OUTSIDE RECORDS SUMMARY | 2025-01-22 08:15 | XMS_ITS | Encounter Summary ---
Author Organization [facility] [employer] [facility] ([facility]) Address [address] [place] [address] Care Team Providers Care Fruit Harvester Name Role Phone Anna Nathan MD Primary Care Provider Reason for Visit * Reason Comments Medicare Annual Wellness Visit Subsequen t GERD Encounter Details Date Type Department Care Team (Late st Contact Info) Description 01/22/2025 8:15 AM EDT Office Visit Adult Medicine [address] [phone] Anna Nathan MD [address] [place], [place] Encounter for annual wellness visit (AWV) in Medicare patient (Primary Dx); Pre-diabetes; Other hyperlipidemia; Gastroesophageal reflux disease without esophagitis; Vitamin B 12 deficiency; Need for prophylactic vaccination and inoculation against influenza Social History Tobacco Use Types Packs/Day Years Used Date Smoking Tobacco: Never Smokeless Tobacco: Never Tobacco Cessation:Counseling Given: Not Answered Alcohol Use Standard Drinks/Week Comments Yes 0 (1 standard drink = 0.6 oz pur e alcohol) Housing Instability Answer Date Recorde d Are you worried that in the next 2 months you may not have stable housing? No 01/22/2025 Food Access & Nutrition Answer Date Rec orded Do you have access to a vari ety of food including fruits and vegetables? Yes 01/22/2025 Access to Healthcare Answer Date Record ed Within the last 3 months, ho w many times did you visit the emergency department for your medical care? 0 01/22/2025 Health Literacy Answer Date Recorded How often do you need to hav e someone help you when you read instructions, pamphlets, or other written material from your doctor or pharmacy? Never 01/22/2025 Caregiver: How often do you need to have someone help you when you read instructions, pamphlets, or other written material from your doctor or pharmacy? Not on file 01/22/2025 Financial Risk Answer Date Recorded How hard is it for you to pa y for the very basics like food, housing, medical care, and air conditioning / heating? Not very hard 01/22/2025 Transportation Answer Date Recorded Has the lack of transportati on kept you from meetings, work, or from getting things needed for daily living? No Has the lack of transportati on kept you from medical appointments or from getting medications? No 01/22/2025 Social Isolation Answer Date Recorded How often do you feel lonely or isolated from th ose around you? Never 01/22/2025 Food Risk Answer Date Recorded Within the past 12 months we worried whether our food would run out before we got money to buy more. Never true 01/22/2025 Within the past 12 months th e food we bought just didn't last and we didn't have money to get more. Never true 01/22/2025 Dependent Care Answer Date Recorded Do you need help finding or paying for care for your loved ones. For example, child care specialist or elderly care for an older adult? No 01/22/2025 Education Answer Date Recorded Do you think completing more education or training, like finishing a GED, going to college, or learning a trade, would be helpful for you? N/A 01/22/2025 Employment and Income Answer Date Recor ded During the last four weeks, have you been actively looking for work? No 01/22/2025 Living Situation Answer Date Recorded What is your living situation? Unrecognized valu e 01/22/2025 Sex and Gender Information Value Date Recorded Sex Assigned at Not on file Legal Sex Male 3:17 PM EST Gender Identity Not on file Sexual Orientation Not on file documented as of this encounter Last Filed Vital Signs Vital Sign Reading Time Taken Comments Blood Pressure 138/80 01/22/2025 8:11 AM EDT Pulse 78 01/22/2025 8:11 AM EDT Temperature 36.8 C (98.3 F) 01/22/2025 8:11 AM EDT Respiratory Rate 16 01/22/2025 8:11 AM EDT Oxygen Saturation - - Inhaled Oxygen Concentration - - Weight 87.1 kg (192 lb) 01/22/2025 8:11 AM EDT Height 172.7 cm (5' 8 ) 01/22/2025 8:11 AM EDT Body Mass Index 29.19 01/22/2025 8:11 AM EDT documented in this encounter Ordered Prescriptions Prescription Sig Dispense Quantity Refills Last Filled Start Date End Date famotidine (PEPCID) 20 mg tablet Take 1 tablet (20 mg total) by mouth 2 (two) times a day. 180 tablet 1 01/22/2025 documented in this encounter Progress Notes * Anna Nathan MD - 01/22/2025 8:15 AM EDTAssociated Problem(s): Pre-diabetes Orders: Hemoglobin A1c; Future * Anna Nathan MD - 01/22/2025 8:15 AM EDTAssociated Problem(s): Hyperlipidemia * Anna Nathan MD - 01/22/2025 8:15 AM EDTAssociated Problem(s): Gastroesophageal reflux disease without esophagitis * Anna Nathan MD - 01/22/2025 8:15 AM EDTAssociated Problem(s): Vitamin B 12 deficiency Orders: CBC and differential; Future * Anna Nathan MD - 01/22/2025 8:15 AM EDT Images from the original note were not included. Medicare Annual Wellness Visit Note Patient Name: Fernando Carroll Date of : 1960 Race: White Ethnicity: Not Hispan/Lat Date of Service: 01/22/2025 Patient Care Team: Anna Nathan MD as PCP - General (Internal Medicine) Fernando is a 64 y.o. male presenting for Medicare Annual Wellness Visit Subsequent and GERD HPI Problem List[1] Allergies[2] Current Outpatient Medications Medication Instructions allopurinoL (ZYLOPRIM) 300 mg, Daily ascorbic acid, vitamin C, 500 mg capsule 1 capsule, Daily colchicine (COLCRYS) 0.6 mg tablet 1 tablet, Daily diclofenac (VOLTAREN) 2 g, 2 times daily famotidine (PEPCID) 20 mg, oral, 2 times daily multivitamin with minerals (CENTRUM) tablet Multiple Vitamins-Minerals (Multivitamin Adults 50+) Tab Take 1 Tablet by mouth daily. pravastatin (PRAVACHOL) 40 mg, oral, Daily tamsulosin (FLOMAX) 0.4 mg, Nightly Medical History[3] Surgical History[4] Social History[5] Family History[6] Immunization History Administered Date(s) Administered COVID-19 ([employer]) 12yo and older 01/15/2023 Influenza Quadravalent, MDCK, 0.5ml, preservative free (Flucelvax) 6mo and older 05/26/2019, 04/21/2021 Influenza Quadravalent, MDCK, 0.5ml, with preservative (Flucelvax) 6mo and older 02/08/2018 Influenza trivalent, 0.5mL (Fluad) 65yo and older 12/23/2023 Influenza trivalent, 0.5mL, preservative free (Fluarix; FluLaval; Fluzone) ages 6mo and older (Afluria) 3 years and older 03/29/2014, 03/26/2015 Influenza trivalent, with preservative (Fluzone; Afluria) 6mo and older 01/16/2013 Moderna (age 6mo & older) Bivalent, COVID-19, 0.5 mL or 0.25 mL dosage 03/16/2022 [employer] SARS-CoV-2 COVID-19, mRNA, LNP-S, preservative free 07/08/2020, 07/29/2020, 02/21/2021, 08/25/2021 Pneumococcal conjugate 20 valent (Prevnar 20, PCV 20) 2mo and older 06/11/2023 Pneumococcal polysaccharide 23 valent (Pneumovax 23) 2yo and older 07/04/2001 Td Tetanus diptheria (Tdvax) 7yo and older 10/29/2006 Tdap Tetanus diptheria acellular pertussis (Boostrix; Adacel) 7yo and older 04/18/2013, 10/05/2022 Zoster recombinant (Shingrix) 19yo and older 05/13/2022, 07/08/2022 Health Maintenance Topic Date Due Social Influencers of Health Screening Never done Medicare Annual Wellness Visit Never done Depression Screening 04/12/2024 Influenza Vaccine (1) 12/11/2024 COVID-19 Vaccine ( season) 2024 Falls Risk Assessment 01/22/2026 Colorectal Cancer Screening: Colonoscopy 01/27/2029 Cholesterol Screening (Lipid Panel) 08/16/2029 DTaP,Tdap,and Td Vaccines (4 - Td or Tdap) 10/05/2032 RSV Immunization Adult Patients (1 - 1-dose 75+ series) 2033 Pneumococcal Vaccine: 50+ Years Completed Zoster Vaccines Completed Hepatitis C Screening Completed HIB Vaccines Aged Out Hepatitis B Vaccines Aged Out IPV Vaccines Aged Out Hepatitis A Vaccines Aged Out MMR Vaccines Aged Out Varicella Vaccines Aged Out Meningococcal ACWY Vaccine Aged Out Meningococcal B Vaccine Aged Out HPV Vaccines Aged Out RSV Immunization Patients Under 20 months Aged Out Cognitive Function Assessment: Cognitive screening performed. Mini COG Clock Drawing Test: Normal Word Recall: Three Words Mini Cog Score: 5 Mini Cog Results: Negative screen for dementia Fall Screening: Fallen in the past year?: No Feels unsteady when standing or walking?: No Worries about falling?: No Calculated fall risk level: low Depression Screening Will the patient answer the depression risk questions?: Yes Over the last 2 weeks, how often have you been bothered by little interest or pleasure in doing things?: Not at all Over the last 2 weeks, how often have you been bothered by feeling down, depressed, or hopeless?: Not at all Depression Risk: 0 PHQ9 Full Set of Questions Over the last 2 weeks, how often have you been bothered by little interest or pleasure in doing things?: Not at all Over the last 2 weeks, how often have you been bothered by feeling down, depressed, or hopeless?: Not at all PHQ -9 Depression Risk Score: 0 Screening Result: Negative Risk Category: Negative Activity of Daily Living (ADLs): Activity of Daily Living (ADLs) Are you able to independently move around your home, with or without an assistive device such as a walker or wheelchair?: Yes Do you need help from others grooming, bathing, or dressing?: No Do you need help from others with eating?: No Do you need help from others for toileting?: No Do you experience urinary incontinence?: No Do you experience fecal incontinence?: No Instrumental Activities of Daily Living (IADLs): Do you need help with using the telephone?: No Do you need help with shopping?: No Do you need help with food preparation?: No Do you need help with housekeeping?: No Do you need help with laundry?: No Do you need help handling finances?: No Do you drive?: Yes Do you manage your own medication?: Yes, independent Functional Ability and Level of Safety Review Health Status: Have you been hospitalized since we last saw you?: No If you use medical equipment (e.g.: CPAP Machine), do you have a preferred supplier?: No In general, the patient reports health as: good In general, patient reports life as: excellent Patient reports sleep pattern as: sleeping well Have you been bothered by sexual problems? : No Have you seen a dentist in the last year?: Yes Physical Activity: Do you exercise for about 20 minutes or more three days a week?: Yes, always Nutritional Assessment: No data recorded Safety: Safety: Does the patient live alone?: Yes Does your home have functioning smoke detection?: Yes Do you use any assistive devices?: No Do you always fasten your seatbelt?: Yes Psychosocial Risks: Has stress been negatively affecting your life?: No Has anger been negatively affecting your life?: No Have you been bothered by unusual fatigue?: No Social Influencers of Health Who provided answers?: Self Within the past 12 months we worried whether our food would run out before we got money to buy more.: Never true Within the past 12 months the food we bought just didn't last and we didn't have money to get more.: Never true How hard is it for you to pay for the very basics like food, housing, medical care, and air conditioning / heating?: Not very hard Are you worried that in the next 2 months you may not have stable housing?: No Do you have access to a variety of food including fruits and vegetables?: Yes Within the last 3 months, how many times did you visit the emergency department for your medical care?: 0 Has the lack of transportation kept you from meetings, work, or from getting things needed for daily living?: No Has the lack of transportation kept you from medical appointments or from getting medications?: No How often do you feel lonely or isolated from those around you?: Never How often do you need to have someone help you when you read instructions, pamphlets, or other written material from your doctor or pharmacy?: Never Review of Systems Objective BP 138/80 Pulse 78 Temp 36.8 ??C (98.3 ??F) (Oral) Resp 16 Ht 1.727 m (68 ) Wt 87.1 kg (192 lb) BMI 29.19 kg/m?? Hearing: No data recorded Vision Screening: Required for Medicare Initial Preventative Physical Exam (IPPE) No data recorded Physical Exam Patient presented today for an Subsequent Medicare Wellness Visit with management of chronic condition(s). Assessment & Plan Pre-diabetes Orders: Hemoglobin A1c; Future Other hyperlipidemia Gastroesophageal reflux disease without esophagitis Vitamin B 12 deficiency Orders: CBC and differential; Future Encounter for annual wellness visit (AWV) in Medicare patient Need for prophylactic vaccination and inoculation against influenza Orders: Influenza trivalent, 0.5mL (Fluad) 65yo and older Risk Assessments: Body mass index is 29.19 kg/m??. The BMI is above average. The patient received dietary education because they have an above normal BMI. Fall Risk: Have you fallen in the past year? no. Are you worried about falling? no. Discussed: removal of throw rugs in home, adequate lighting/night lights, pausing with transitional movements, paying attention to surroundings, and clear pathways/stairs PHQ -9 Depression Risk Score: 0 Depression plan: Screen was negative Pain Medication: Patient does not take any opioid medications Advance Care Planning Advance care planning is the process of planning for future medical care in case you are unable to make your own medical decisions. It involves choosing a health care sales promotion representative and reviewing future health care directives. The patient Advance Directives: does not have advance directives or surrogate decision maker.. AWV and DPA discussed Health Maintenance Due Topic Date Due Social Influencers of Health Screening Never done Medicare Annual Wellness Visit Never done Depression Screening 04/12/2024 Influenza Vaccine (1) 12/11/2024 COVID-19 Vaccine ( season) 2024 The following vaccine(s) were recommended: Vaccines Recommended: COVID vaccine Patient Instructions (the written plan) as discussed and documented in our visit today. Anna Nathan MD ADULT MEDICINE [address] [address] Dept: [phone] Dept [1] Patient Active Problem List Diagnosis Benign prostatic hyperplasia with lower urinary tract symptoms Chronic cough Decreased hearing Elevated PSA Gastroesophageal reflux disease without esophagitis Gout Hyperlipidemia Keratoconus Nephrolithiasis Overweight (BMI 25.0-29.9) Pre-diabetes Vitamin B 12 deficiency History of cornea transplant [2] Allergies Allergen Reactions Bee Venom Protein (Honey Bee) [3] Past Medical History: Diagnosis Date Benign prostatic hyperplasia with lower urinary tract symptoms 06/07/2017 CKD (chronic kidney disease) stage 2, GFR 60-89 ml/min 10/19/2022 Gout 12/23/2023 Hyperlipidemia 03/08/2024 Keratoconus 10/11/2012 S/p bilateral corneal transplant. Last on in [place]. [facility]. Microscopic hematuria Nephrolithiasis 06/07/2017 Pre-diabetes 04/24/2022 Vitamin B 12 deficiency 04/24/2022 [4] Past Surgical History: Procedure Laterality Date COLONOSCOPY 01/27/2019 HERNIA REPAIR Right 12/09/2018 inguinal OTHER SURGICAL HISTORY : corneal transplant OTHER SURGICAL HISTORY deviated septum OTHER SURGICAL HISTORY arthrospic knee surgery [5] Social History Tobacco Use Smoking status: Never Smokeless tobacco: Never Substance Use Topics Alcohol use: Yes Drug use: No [6] Family History Problem Relation Name Age of Onset Leukemia Paternal Grandfather Prostate cancer Father 70.00 CVA, HTN, cholesterol * Anna Nathan MD - 01/22/2025 8:15 AM EDT Chief Complaint: Chief Complaint Patient presents with Medicare Annual Wellness Visit Subsequent GERD IDENTIFIER: Fernando Carroll is a 64 y.o. old male HPI He comes for evaluation with prediabetes, elevated cholesterol, vitamin B12 deficiency, GE reflux. He has not yet had the flu vaccine or updated COVID- vaccine. He has not had any recent outbreaks of gout, he does use colchicine if needed along with daily allopurinol, Pepcid, pravastatin and continues to follow with urology for BPH. He notes that he has been having knee pain and is seeing rheumatology, did have an MRI and was found to have a right torn meniscus, is scheduled to see orthopedics tomorrow. He is continuing with a low sugar diet as well as a low-cholesterol diet. ROS: General: No malaise, significant weight loss or fever Respiratory: No cough, wheezing or shortness of breath Cardiovascular: No chest pain, palpitations, no orthopnea Past Medical History: Patient Active Problem List Diagnosis Date Noted History of cornea transplant 07/20/2024 Hyperlipidemia 03/08/2024 Gout 12/23/2023 Gastroesophageal reflux disease without esophagitis 11/25/2022 Overweight (BMI 25.0-29.9) 10/19/2022 Pre-diabetes 04/24/2022 Vitamin B 12 deficiency 04/24/2022 Chronic cough 01/06/2022 Elevated PSA 06/17/2020 Benign prostatic hyperplasia with lower urinary tract symptoms 06/07/2017 Nephrolithiasis 06/07/2017 Decreased hearing 04/23/2014 Keratoconus 10/11/2012 Surgical History: Surgical History[1] Family History: Family History[2] Social History: Social History Tobacco Use Smoking status: Never Smokeless tobacco: Never Substance Use Topics Alcohol use: Yes Allergies: Bee venom protein (honey bee) Medications: Medications Taking[3] Medication Discontinued/Reordered: Medications Discontinued During This Encounter Medication Reason famotidine (PEPCID) 20 mg tablet Reorder Vitals: Blood pressure 138/80, pulse 78, temperature 36.8 ??C (98.3 ??F), temperature source Oral, resp. rate 16, height 1.727 m (68 ), weight 87.1 kg (192 lb). Body mass index is 29.19 kg/m??.BMI is greaterthan 25.0 (above the normal range) - see Plan Physical Exam: General: patient is in no acute distress. Neck supple without adenopathy, no thyromegaly. Lungs clear with auscultation. Heart: regular S1S2 without murmur, rub or gallop. Extremities without cyanosis, clubbing or edema. Labs: Glycohemoglobin, CBC ordered Lab Results Component Value Date HGBA1C 5.8 08/16/2024 Lab Results Component Value Date CHOL 176 08/16/2024 TRIG 107 08/16/2024 HDL 53 08/16/2024 LDLCALC 102 (H) 08/16/2024 VLDL 21.4 08/16/2024 NONHDLC 123 08/16/2024 CHOLHDL 3.3 08/16/2024 Impression: 1. Encounter for annual wellness visit (AWV) in Medicare patient 2. Pre-diabetes 3. Other hyperlipidemia 4. Gastroesophageal reflux disease without esophagitis 5. Vitamin B 12 deficiency 6. Need for prophylactic vaccination and inoculation against influenza Assessment and Plan: He is updated with flu vaccine and he will pursue the COVID-vaccine through the pharmacy. He will continue to work on low sugar and low-cholesterol diet and continue on pravastatin, lab work today asnoted. He will continue with vitamin B12 as well and will be seeing orthopedics regarding the torn meniscus, has been using diclofenac gel. Reflux remains stable and controlled on the Pepcid, he is continuing with daily allopurinol and has colchicine to use if needed for gouty outbreaks. He will return in 6 months, sooner if needed. [1] Past Surgical History: Procedure Laterality Date COLONOSCOPY 01/27/2019 HERNIA REPAIR Right 12/09/2018 inguinal OTHER SURGICAL HISTORY : corneal transplant OTHER SURGICAL HISTORY deviated septum OTHER SURGICAL HISTORY arthrospic knee surgery [2] Family History Problem Relation Name Age of Onset Leukemia Paternal Grandfather Prostate cancer Father 70.00 CVA, HTN, cholesterol [3] Outpatient Medications Marked as Taking for the 01/22/25 encounter (Office Visit) with Anna Nathan MD Medication Sig Dispense Refill diclofenac (VOLTAREN) 1 % topical gel Apply 2 g topically 2 (two) times a day. famotidine (PEPCID) 20 mg tablet Take 1 tablet (20 mg total) by mouth 2 (two) times a day. 180 tablet 1 documented in this encounter Plan of Treatment Upcoming Encounters Date Type Department Care Team (Late st Contact Info) Description 08/13/2025 8:30 AM EDT Office Visit Adult Medicine [facility] [address], [place] [phone] Jaci Edwards PA [address] [place], [place] documented as of this encounter Results * Hemoglobin A1c (01/22/2025 8:42 AM EDT) Hemoglobin A1C 5.7 <6.5 % LAB CHEMISTRY METHOD 01/22/2025 1:33 PM EDT [facility] Mean Bld Glu Estim. 117 mg/dL LAB CHEMISTRY METHOD 01/22/2025 1:33 PM EDT [facility] Blood Venous blood specimen / Unknown Venipuncture / Unknown 01/22/2025 8:42 AM EDT 01/22/2025 8:42 AM EDT us Anna Nathan MD LAB BLOOD ORDERABLES Final Resul t [facility] [address] [place] [address], documented in this encounter Visit Diagnoses Diagnosis Encounter for annual wellness visit (AWV) in Medicare patient- Primary Pre-diabetes Other abnormal glucose Other hyperlipidemia Gastroesophageal reflux disease without esophagitis Esophageal reflux Vitamin B 12 deficiency Other B-complex deficiencies Need for prophylactic vaccination and inoculation against influenza documented in this encounter Discontinued Medications Medication Sig Discontinue Reason Start Date End Da te famotidine (PEPCID) 20 mg tablet TAKE 1 TABLET BY MOUTH 2 TIMES DAILY. PRIOR TO MEALS Reorder 08/28/2024 01/22/2025 documented as of this encounter Historical Medications * This list may reflect changes made after this encounter. diclofenac (VOLTAREN) 1 % topical gel Apply 2 g topically 2 (two) times a day. added in this encounter Orders Immunization/Injection Count Last Ordered Date First Ordered Date INFLUENZA TRIVALENT, 0.5ML ( FLUAD) 65YO AND OLDER 1 01/22/2025 documented in this encounter Additional Health Concerns Assessment Noted Time PHQ-9 Depression Total Score: 0 01/23/20 25 8:24 AM EDT A fall risk assessment has been complete d for the patient 01/22/2025 8:26 AM EDT documented as of this encounter Care Teams Fruit Harvester Relationship Specialty Start Date End Date Anna Nathan MD [address] [place] [address] PCP - General Internal Medicine 02/14/21 documented as of this encounter
--- NOTE | 2025-01-23 14:54 | MHC.OFFVIS ---
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 The patient denies any constant pain. He continues to play pickleball and work out for exercise. He states that at times his right knee will give out when he is going up or down stairs. He has not fallen. He states that at this point his symptoms are tolerable to him. Allergies bee pollen (bee stings) Adverse Reaction (Intermediate, Verified 01/23/25 14:59) Swelling Medication List - Last Reconciled 01/23/25 by Daniel Schwartz MD allopurinol 250 mg (2.5 x 100 mg) PO DAILY 90 days allopurinol 300 mg PO DAILY colchicine 0.6 mg PO DAILY diclofenac sodium 1% (Arthritis Pain (diclofenac)) 2 grams topical QID famotidine 40 mg PO DAILY mecobalamin (vitamin B12) mcg PO pravastatin 40 mg PO DAILY tamsulosin 0.4 mg PO DAILY PFSH Family History Father Prostate cancer Social History Household Members: Spouse Housing: House Alcohol intake: current Comment: Rare Patient Tobacco Use Status: Never used Tobacco Physical Exam Vital Signs: BMI result Body Mass Index 28.4 Const Other: Well-nourished well-developed very friendly male awake alert and oriented x3 in no acute distress Extrem Other: Right knee examination shows a minimal effusion, minimal crepitus with range of motion, tenderness along his medial joint line, positive Anh's test, no instability Results Reviewed Results Reviewed: Standing full weight-bearing x-rays of the patient's right knee show mild diffuse joint space narrowing, no acute bony abnormalities MRI of the patient's right knee shows mild degenerative changes as well as a tear of the medial meniscus Assessment & Plan Assessment & Plan (1) Tear of medial meniscus of right knee: Code(s): S83.241A - Other tear of medial meniscus, current injury, right knee, initial encounter Category: Medical Plan Mr. Carroll presents with intermittent right knee discomfort and mechanical symptoms due to a medial meniscus tear. I had a lengthy discussion with the patient regarding the treatment options. At this point the patient's symptoms are tolerable to him. He will continue with his exercise program. He will follow up with me on an as-needed basis should his symptoms worsen in any way. Feel free to call me at any time should questions regarding his orthopedic management arise. Thank you very much for asking me to see this very friendly gentleman. I spent 20 minutes in reviewing the patient's records and imaging studies, seeing the patient and documenting in the medical record. Coding Level of Care Code New Pt Level 3 (51088) Complex EM visit Add On G2211 Diagnoses Tear of medial meniscus of right knee S83.241A
[2025-01-23 14:58] VITALS: BMI 28.4
--- OUTSIDE RECORDS SUMMARY | 2025-01-23 17:46 | XMS_ITS | Encounter Summary ---
Author Organization [facility] Address [address] [place] [address] Care Team Providers Care Director Cardiac Name Role Phone Unavailable Primary Care Provider Unavailabl e Encounter Details Date Type Department Care Team (Latest Contact Info) Description 04/04/[address] [facility] [address] [place] [address] [address] [place] [address] Benjy Allen PA-C [address] [place] [address] Encounter for laboratory testing for COVID-19 virus [...] Date/Time Associated Diagnosis Comments COVID-19 (SARS-COV-2) - [facility] LAB Routine 04/04/2020 11:13 AM EST Encounter for laboratory testing for COVID-19 virus [ICD-10-CM] documented in this encounter Results * COVID-19 (SARS-COV-2) ([facility]) (04/04/2020 11:13 AM EST) COVID-19 RT-PCR NOT-DETECT ED Not-Detec gareth 04/07/2020 11:12 PM EST [facility] - [facility] Comment:Interpretation: The viral RNA was not detected, making the COVID-19 diagnosis less likely. Clinical correlation is highly recommended.Final report signed by Jamie Toscano, Ph.D., [facility], Laboratory DirectorTests performed at [facility] Nasopharyngeal swab / Unknown 04/04/2020 11:13 AM EST 04/04/2020 11:13 AM EST Narrative WELLINGTONReji LARIOS Dia ANTWON - 04/07/2020 11:12 PM EST Performed by [facility] [address] [place] [address], CLIA# [id number] and [place] License# [id number] Benjy Allen PA-C MICROBIOLOGY - GENERAL OR DERABLES Final Result JOHNNY KAPOOR documented in this encounter Visit Diagnoses Diagnosis Encounter for laboratory testing for COVID-19 virus documented in this encounter
--- OUTSIDE RECORDS SUMMARY | 2025-01-23 17:46 | XMS_ITS | Clinical Summary ---
Author Organization [facility] Address [address] [place] [address] Care Team Providers Care Billing Typist Name Role Phone Unavailable Primary Care Provider [...]
--- OUTSIDE RECORDS SUMMARY | 2025-01-23 17:46 | XMS_ITS ---
Author Name [facility] Organization Unknown Care Team Organization Name Specialty Phone Email Start Date End [facility]CO 11/29/2024
--- OUTSIDE RECORDS SUMMARY | 2025-01-23 17:46 | XMS_ITS | Clinical Summary ---
Author Organization [facility] Address [address] [place] [address] Phone Care Team Providers Care [employer] Name Role Phone Anna Nathan MD Primary Care Provider [phone] Social History Tobacco Use Types Packs/Day Years [...] Description 03/26/2025 2:15 PM EST Office Visit [facility] [address] [facility] [address] [place] [address] Cathy Delgado NP [address] [place] [address] Health Maintenance Due Date Last Done Comments [...] (#1) 2024 12/23/2023 COVID-19 VACCINE (1 - 2024-2 6 season) 2024 LIPID PANEL 08/16/2029 08/16/2024, 07/05/2023 [...] Final Result from Last 3 Months Insurance MEDICARE PART A & B [facility] EXTENSION MEDICARE SUPPLEMENT MEDICARE PART A & B [facility] EXTENSION MEDICARE SUPPLEMENT MEDICARE PART A & B [facility] MEDICARE SUPPLEMENT MEDICARE PART A & B [facility] EXTENSION MEDICARE SUPPLEMENT MEDICARE PART A & B [facility] EXTENSION MEDICARE SUPPLEMENT MEDICARE PART A & B Member Subscriber Plan / Payer (Ef fective 2023-Present) Name:Fernando Stoddard Member ID:[id number] Relation to Subscriber:Self Name:Fernando Stoddard Subscriber ID:[id number] Payer ID:[id number] Group ID:Not on file Type:Medicare Address: [facility] [facility] [address] [place] [phone] [facility] EXTENSION MEDICARE SUPPLEMENT Care Teams [employer] Relationship Specialty Start Date End Date Anna Nathan MD [address] [place] [address] PCP - General Internal Medicine 07/20/23 Additional Source Comments The information contained in this document represents components of the legal health record. It is not the complete legal health record.[facility]
--- OUTSIDE RECORDS SUMMARY | 2025-01-23 17:46 | XMS_ITS | Clinical Summary ---
Author Organization [address] Address [address] [place] [phone] Phone Care Team Providers Care Feather Boner Name Role Phone Anna Nathan MD Primary Care Provider [phone] Allergies Active Allergy Reactions Criticality Noted Date [...] 1 Tablet by mouth daily. 5 Active pravastatin (PRAVACHOL) 40 mg tablet TAKE 1 TABLET BY MOUTH EVERY DAY 90 tablet 1 5 Active diclofenac (VOLTAREN) 1 % topical gel Apply 2 g topically 2 (two) times a day. Active famotidine (PEPCID) 20 mg tablet Take 1 tablet (20 mg total) by mouth 2 (two) times a day. 180 tablet 1 Active famotidine (PEPCID) 20 mg tablet TAKE 1 TABLET BY MOUTH 2 TIMES DAILY. PRIOR TO MEALS 180 tablet 1 5 01/23/20 25 Discontinu ed(Reorder ) Active Problems Problem Noted Date Diagnosed Date History of cornea transplant 07/20/2024 Hyperlipidemia 03/08/2024 Assessment & Plan (01/22/2025 8:29 AM EDT): Gout 12/23/2023 Gastroesophageal reflux disease without esophagi tis 11/25/2022 Assessment & Plan (01/22/2025 8:29 AM EDT): Overweight (BMI 25.0-29.9) 10/19/2022 Pre-diabetes 04/24/2022 Assessment & Plan (01/22/2025 8:29 AM EDT): Orders: Hemoglobin A1c; Future Vitamin B 12 deficiency 04/24/2022 Assessment & Plan (01/22/2025 8:29 AM EDT): Orders: CBC and differential; Future Chronic cough 01/06/2022 Overview (07/12/2024): Elevated PSA 06/17/2020 Benign prostatic hyperplasia with lower urinary tract symptoms 06/07/2017 Nephrolithiasis 06/07/2017 Decreased hearing 04/23/2014 [place] 10/11/2012 Overview (03/08/2024): S/p bilateral corneal transplant. Last on in [place]. Resolved Problems Problem Noted Date Diagnosed Date Resolved Date CKD (chronic kidney disease) stage 2, GFR 60-89 ml/min 10/19/2022 07/20/2024 Rhinitis 10/11/2012 07/12/2024 Overview (03/08/2024): Last Assessment & Plan: 1. Flonase 1 puff twice a day in each nostril 2. Zyrtec 10 mg p.o. every day Encounters Date Type Department Care Team Description 01/22/2025 8:15 AM EDT Office Visit Adult Medicine [address] [phone] Anna Nathan MD Encounter for annual wellness visit (AWV) in Medicare patient (Primary Dx); Pre-diabetes; Other hyperlipidemia; Gastroesophageal reflux disease without esophagitis; Vitamin B 12 deficiency; Need for prophylactic vaccination and inoculation against influenza 01/22/2025 Results Follow-Up Adult Medicine [address] [phone] Anna Nathan MD from Last 3 Months Immunizations Immunization Administration Dates Next Due Influenza Quadravalent, MDCK , 0.5ml, preservative free (Flucelvax) 6mo and older 04/21/2021,05/26/2019 Influenza Quadravalent, MDCK , 0.5ml, with preservative (Flucelvax) 6mo and older 02/08/2018 Influenza trivalent, 0.5mL ( Fluad) 65yo and older 01/22/2025,12/23/2023 Influenza trivalent, 0.5mL, preservative free (Fluarix; FluLaval; Fluzone) ages 6mo and older (Afluria) 3 years and older 03/26/2015,03/29/2014 Influenza trivalent, with pr eservative (Fluzone; Afluria) 6mo and older 01/16/2013 Moderna (age 6mo & older) Bi valent, COVID-19, 0.5 mL or 0.25 mL dosage 03/16/2022 ContextWeb SARS-CoV-2 COVID-19, mRNA, LNP-S, preservative free 08/25/2021,07/29/2020,07/08/2020 [...] bilateral co rneal transplant. Last on in [place]. [facility]. Pre-diabetes 04/24/2022 Vitamin B 12 [...] Record ed Within the last 3 months, danette ho many times did you visit the emergency [...] for your loved ones. For example, child welfare caseworker or elderly care for an older adult? [...] 16 01/22/2025 8:11 AM EDT Oxygen Saturation 96% 07/20/2024 8:25 AM EDT Inhaled Oxygen Concentration - - Weight 87.1 kg (192 lb) 01/22/2025 8:11 AM EDT Height 172.7 cm (5' 8 ) 01/22/2025 8:11 AM EDT Body Mass Index 29.19 01/22/2025 8:11 AM EDT Plan of Treatment Upcoming Encounters Date Type Department Care Team (Late st Contact Info) Description 08/13/2025 8:30 AM EDT Office Visit Adult Medicine [facility] [address] [place], [place] [phone] Jaci Edwards PA [address] [place], [place] Health Maintenance Due Date Last Done Comments COVID-19 Vaccine (2024- season) 2024 01/15/2023, 03/16/2022, 08/25/2021, Additional history exists Falls Risk Assessment 01/22/2026 01/22/2025, 024 Medicare Annual Wellness Visit 01/22/2026 01/22/2025 Social Influencers of Health Screening 01/22/2026 01/22/2025 Colorectal Cancer Screening: Colonoscopy 01/27/2029 01/27/2019 Cholesterol Screening (Lipid Panel) 08/16/2029 08/16/2024, 07/05/2023 DTaP,Tdap,and Td Vaccines (4 - Td or Tdap) 10/05/2032 10/05/2022, 04/18/2013, 10/29/2006 RSV Immunization Adult Patients (1 - 1-dose 75+ series) 2033 Hepatitis C Screening Completed 12/05/2016 Zoster Vaccines Completed 07/08/2022, 05/13/2022 Pneumococcal Vaccine: 50+ Years Completed 06/11/2023, 07/04/2001 Depression Screening Completed 01/22/2025, 12/23/19 24 Influenza Vaccine Completed 01/22/2025, , 04/21/2021, Additional history exists HIB Vaccines Aged Out [...] Procedure Name Priority Date/Time Associated Diagnosis Comments CBC WITH AUTO DIFFERENTIAL Routine 01/22/2025 8:42 AM EDT Vitamin B 12 deficiency HEMOGLOBIN A1C Routine 01/22/2025 8:42 AM EDT Pre-diabetes CBC AND DIFFERENTIAL Routine 01/22/2025 8:42 AM EDT Vitamin B 12 deficiency LIPID PANEL WITH REFLEX TO DIRECT LDL Routine 08/16/2024 7:43 AM EDT Other hyperlipidemia DEPRESSION SCREENING Routine 12/23/2023 FALLS RISK ASSESSMENT Routine 12/23/2023 COLONOSCOPY Routine 01/27/2019 HEPATITIS C SCREENING Routine 12/05/2016 from Last 3 Months or Most Recently Relevant to Health Maintenance Results * CBC auto differential (01/22/2025 8:42 AM EDT) WBC 7.3 4.8 - 10.8 K/mcL LAB HEMETOLOGY METHOD 01/22/2025 10:20 AM EDT [facility] RBC 5.20 4.50 - 5.50 M/mcL LAB HEMETOLOGY METHOD 01/22/2025 10:20 AM EDT [facility] Hemoglobin 15.5 13.5 - 17.5 g/dL LAB HEMETOLOGY METHOD 01/22/2025 10:20 AM EDT [facility] Hematocrit 46.6 42.0 - 54.0 % LAB HEMETOLOGY METHOD 01/22/2025 10:20 AM T [facility] MCV 89.6 79.0 - 98.0 FL LAB HEMETOLOGY METHOD 01/22/2025 10:20 AM [facility] MCH 29.8 27.0 - 32.0 pcg LAB HEMETOLOGY METHOD 01/22/2025 10:20 AM [facility] MCHC 33.3 32.0 - 37.0 g/dL LAB HEMETOLOGY METHOD 01/22/2025 10:20 AM [facility] RDW 13.8 11.0 - 15.0 % LAB HEMETOLOGY METHOD 01/22/2025 10:20 AM [facility] Platelets 192 130 - 400 K/mcL LAB HEMETOLOGY METHOD 01/22/2025 10:20 AM [facility] MPV 10.6 7.0 - 11.0 FL LAB HEMETOLOGY METHOD 01/22/2025 10:20 AM [facility] NRBC 0.0 <1.0 % LAB HEMETOLOGY METHOD 01/22/2025 10:20 AM [facility] NRBC Absolute 0.00 <0.10 K/mcL LAB HEMETOLOGY METHOD 01/22/2025 10:20 AM [facility] Neutrophils Relative 60.0 % LAB HEMETOLOGY METHOD 01/22/2025 10:20 AM [facility] Lymphocytes Relative 25.1 % LAB HEMETOLOGY METHOD 01/22/2025 10:20 AM [facility] Monocytes Relative 9.6 % LAB HEMETOLOGY METHOD 01/22/2025 10:20 AM [facility] Eosinophils Relative 4.5 % LAB HEMETOLOGY METHOD 01/22/2025 10:20 AM [facility] Basophils Relative 0.5 % LAB HEMETOLOGY METHOD 01/22/2025 10:20 AM EDT [facility] Immature Granulocytes Relative 0.3 % LAB HEMETOLOGY METHOD 01/22/2025 10:20 AM EDT [facility] Neutrophils Absolute 4.38 1.50 - 7.00 K/mcL LAB HEMETOLOGY METHOD 01/22/2025 10:20 AM EDT [facility] Lymphocytes Absolute 1.83 1.00 - 5.00 K/mcL LAB HEMETOLOGY METHOD 01/22/2025 10:20 AM EDT [facility] Monocytes Absolute 0.70 0.20 - 1.00 K/mcL LAB HEMETOLOGY METHOD 01/22/2025 10:20 AM EDT [facility] Eosinophils Absolute 0.33 0.00 - 0.50 K/mcL LAB HEMETOLOGY METHOD 01/22/2025 10:20 AM EDT [facility] Basophils Absolute 0.04 0.00 - 0.20 K/mcL LAB HEMETOLOGY METHOD 01/22/2025 10:20 AM EDT [facility] Immature Granulocytes Absolute 0.02 0.00 - 0.03 K/mcL LAB HEMETOLOGY METHOD 01/22/2025 10:[facility] Blood Venous blood specimen / Unknown Venipuncture / Unknown 01/22/2025 8:42 AM EDT 01/22/2025 8:42 AM EDT us Anna Nathan MD LAB BLOOD ORDERABLES Final Resul t [facility] [address] [place] [address], * Hemoglobin A1c (01/22/2025 8:42 AM EDT) Hemoglobin A1C 5.7 <6.5 % LAB CHEMISTRY METHOD 01/22/2025 1:33 PM EDT [facility] Mean Bld Glu Estim. 117 mg/dL LAB CHEMISTRY METHOD 01/22/2025 1:33 PM EDT [facility] Blood Venous blood specimen / Unknown Venipuncture / Unknown 01/22/2025 8:42 AM EDT 01/22/2025 8:42 AM EDT us Anna Nathan MD LAB BLOOD ORDERABLES Final Resul t [facility] [address] [place] [address], [place] [phone] * (ABNORMAL) Lipid panel with reflex to direct LDL (08/16/2024 7:43 AM EDT) Cholesterol 176 0 - 200 mg/dL LAB CHEMISTRY METHOD 08/16/2024 11:10 AM T [facility] Triglycerides 107 0 - 150 mg/dL LAB CHEMISTRY METHOD 08/16/2024 11:10 AM [facility] HDL 53 >=40 mg/dL LAB CHEMISTRY METHOD 08/16/2024 11:10 AM [facility] LDL Calculated 102(H) 0 - 100 mg/dL LAB CHEMISTRY METHOD 08/16/2024 11:10 AM [facility] VLDL Cholesterol Issac 21.4 mg/dL LAB CHEMISTRY METHOD 08/16/2024 11:10 AM [facility] Non HDL Chol. (LDL+VLDL) 123 <145 mg/dL LAB CHEMISTRY METHOD 08/16/2024 11:10 AM [facility] Chol/HDL Ratio 3.3 0.0 - 4.4 LAB CHEMISTRY METHOD 08/16/2024 11:10 AM [facility] Blood Venous blood specimen / Unknown Venipuncture / Unknown 08/16/2024 7:43 AM EDT 08/16/2024 7:43 AM EDT Anna Nathan MD LAB BLOOD ORDERABLES Final Resul t [facility] [address] [place] [address], [place] [phone] * Falls Risk Assessment (12/23/2023) Pathologist [facility] Falls Risk Assessment Abstracted Historical Provider HEALTH MAINTENANCE Final Result * Depression Screening (12/23/2023) Pathologist [facility] Depression Screening Abstracted Historical Provider HEALTH MAINTENANCE Final Result * Colonoscopy (01/27/2019) Pathologist [facility] Colonoscopy Abstracted, no interpretation Anatomical Region Laterality Modality Other Historical Provider HEALTH MAINTENANCE Final Result * Hepatitis C Screening (12/05/2016) Pathologist [facility] Hepatitis C Screening Abstracted Historical Provider HEALTH MAINTENANCE Final Result from Last 3 Months or Most Recently Relevant to Health Maintenance Insurance MEDICARE [facility] Care Teams Feather Boner Relationship Specialty Start Date End Date Anna Nathan MD [address] [place] [address] PCP - General Internal Medicine 02/14/21
--- OUTSIDE RECORDS SUMMARY | 2025-01-23 17:46 | XMS_ITS | Encounter Summary ---
Author Organization [facility] Address [address] [place] [id number] Care Team Providers Care Physical Therapist Clinic Director Name Role Phone Unavailable Primary Care Provider Unavailabl e Encounter Details Date Type Department Care Team (Latest Contact Info) Description 04/01/2020 Lab Requisition [facility] COVID [address] Through [address] [place] [address] [address] [place] [address] Benjy Allen PA-C [address] [place] [address] [phone] Encounter for laboratory testing for COVID-19 virus [...] Associated Diagnosis Comments COVID-19 (SARS-COV-2) - [facility] LAB Routine 04/01/2020 1:56 PM EST Encounter for laboratory testing for COVID-19 virus [ICD-10-CM] documented in this encounter Results * COVID-19 (SARS-COV-2) ([facility]) (04/01/2020 1:56 PM EST) COVID-19 RT-PCR NOT-DETECT ED Not-Detec gareth 04/03/2020 7:39 PM EST [facility] - ANTW[facility] Comment:Interpretation: The viral RNA was not detected, making the COVID-19 diagnosis less likely. Clinical correlation is highly recommended.Final report signed by Jamie Toscano, Ph.D., [facility], Laboratory DirectorTests performed at [facility] Microbiology Nasopharyngeal swab / Unknown 04/01/2020 1:56 PM EST 04/01/2020 1:56 PM EST Narrative WELLINGTONReji LARIOS Dia RAMSAYLISSETTE - 04/03/2020 7:39 PM EST Performed by [facility] [address] [place] [address], CLIA# [id number] and [place] License# [id number] Benjy Allen PA-C MICROBIOLOGY - GENERAL OR DERABLES Final Result JOHNNY KAPOOR documented in this encounter Visit Diagnoses Diagnosis Encounter for laboratory testing for COVID-19 virus documented in this encounter
--- OUTSIDE RECORDS SUMMARY | 2025-01-23 17:46 | XMS_ITS | Encounter Summary ---
Author Organization [facility] Address [address] [place] [address] Care Team Providers Care Diabetes Manager Name Role Phone Anna Nathan MD Primary Care Provider [phone] Encounter Details Date Type Department Care Team (Late st Contact Info) Description 01/22/2025 Results Follow-Up Adult Medicine [facility] [address] [place], [place] [phone] Anna Nathan MD [address] [place], [place] Social History Tobacco Use Types Packs/Day Years [...] do you feel lonely or isolated from ose around you? Never 01/22/2025 Food Risk [...] your loved ones. For example, child care lead teacher or elderly care for an older adult? [...] as of this encounter Plan of Treatment Upcoming Encounters Date Type Department Care Team (Late st Contact Info) Description 08/13/2025 8:30 AM EDT Office Visit Adult Medicine [facility] [address] [place] [address] Jaci Edwards PA [address] [place], [place] documented as of this encounter Visit Diagnoses Not on filedocumented in this encounter Additional Health Concerns Assessment Noted Time PHQ-9 Depression Total Score: 0 01/23/20 25 8:24 AM EDT A fall risk assessment has been complete d for the patient 01/22/2025 8:26 AM EDT documented as of this encounter Care Teams Diabetes Manager Relationship Specialty Start Date End Date Anna Nathan MD [address] [place] [address] PCP - General Internal Medicine 02/14/21 documented as of this encounter
== END 2025-01-23 15:26 | disposition home or self-care (01) ==
LOC: HO.HOS 14:53
PROVIDERS: PCP Internal Medicine; Visit Provider Orthopaedic Surgery
DX: S83.241A Other tear of medial meniscus, current injury, right knee, initial encounter (principal)
CPT/HCPCS: 99203; G2211

== ENCOUNTER → 2025-01-23 14:52 | Outpatient (BNVA) | payer MEDICARE, OTHER, SELFPAY | PROVIDERS: PCP Internal Medicine; Visit Provider Orthopaedic Surgery | DX: S83.241A Other tear of medial meniscus, current injury, right knee, initial encounter (principal) | CPT/HCPCS: 99202 ==

== ENCOUNTER 2025-03-01 08:36 | Outpatient (AMB) | payer MEDICARE, OTHER, SELFPAY ==
--- NOTE | 2025-03-01 08:40 | A.OFFVIS_ITS ---
Vital Signs 03/01/25 08:41 Height 5 ft 8 in Weight 191 lb 5.78 oz BMI 29.1 BP 122/90 H Blood Pressure Location Rt brachial Position Sitting Pulse 66 Pulse Source Pulse Oximeter Pulse Oximetry (%) 97 Oxygen Delivery Method Room Air Intake Visit Reasons: 3months Intake Note: Patient presents for gout follow up. Accompanied by: Self / Same As Patient Allergies bee pollen (bee stings) Adverse Reaction (Intermediate, Verified 01/23/25 14:59) Swelling HPI HPI 3months: Details: He continues home exercise program for knee strenghening. Ortho recommended no surgical intervention. Hard to kneel on right knee. No gout flare. He uses diclofenac gel on DIPJ knees intermittently. PFSH Family History Father Prostate cancer Social History Household Members: Spouse Housing: House Alcohol intake: current Comment: Rare Patient Tobacco Use Status: Never used Tobacco Physical Exam Vital Signs: Last Vital Signs Pulse 66 03/01/25 08:41 BP 122/90 H 03/01/25 08:41 Pulse Ox 97 03/01/25 08:41 Oxygen Delivery Method Room Air 03/01/25 08:41 BMI result Body Mass Index 29.1 Const Other: General: Comfortable Skin: No lesions seen MSK: [place] nodes present. Synovitis of right 3rd DIPJ. No tophus. Good range of motion of upper extremity and lower extremity. Left infrapatellar bursa fullness and tenderness palpated. Assessment & Plan Assessment & Plan (1) Gout: Comment: Controlled on allopurinol. Rheumatology history: Presumed diagnosis. He had remote transaminitis 08/2024, which has resolved on recent testing. His uric acid level goal is less than 5 to prevent flares. When uric acid level was greater than 6 he had attacks. Code(s): M10.9 - Gout, unspecified Category: Medical Qualifiers: Chronicity: chronic Gout etiology: unspecified cause Gout site: [facility] sites Qualified Code(s): M1A.09X0 - Idiopathic chronic gout, multiple sites, without tophus (tophi) Plan: Continue allopurinol 250 mg daily Labs for drug monitoring and Uric acid level ordered Return to clinic in 6 months (2) Other senior living (current) drug therapy: Code(s): Z79.899 - Other terminal [facility] (current) drug therapy Category: Medical Plan: See above (3) Patellar bursitis of left knee: Code(s): M70.52 - Other bursitis of knee, left knee Category: Medical Plan: He will use diclofenac gel 1% applied to affected area q.i.d. PRN He will ice knee to 2 3 times a day If no change in symptoms after 2 weeks, I will call office for PT. Orders: Orders Creatinine Today M1A.09X0 - Idiopathic chronic gout, multiple sites, without tophus (tophi) Aspartate Amino Transferase Today M1A.09X0 - Idiopathic chronic gout, multiple sites, without tophus (tophi) Alanine Aminotransferase Today M1A.09X0 - Idiopathic chronic gout, multiple sites, without tophus (tophi) Uric Acid Today M1A.09X0 - Idiopathic chronic gout, multiple sites, without tophus (tophi) Coding Level of Care Code Est Pt Level 4 (68138) Complex EM visit Add On G2211 Diagnoses Chronic gout of multiple sites, unspecified cause M1A.09X0 Chronicity: chronic Gout etiology: unspecified cause Gout site: multiple sites Other terminal [facility] (current) drug therapy Z79.899 Patellar bursitis of left knee M70.52 Time Spent (min) 25
[2025-03-01 08:41] VITALS: BP 122/90; PULSE 66; O2SAT 97; BMI 29.1
== END 2025-03-01 09:13 | disposition home or self-care (01) ==
LOC: HO.RHES 08:36
PROVIDERS: PCP Internal Medicine; Visit Provider Internal Medicine Rheumatology
DX: M1A.09X0 Idiopathic chronic gout, multiple sites, without tophus (tophi) (principal); Z79.899 Other long term (current) drug therapy; M70.52 Other bursitis of knee, left knee
CPT/HCPCS: 99214; G2211

== ENCOUNTER 2025-03-01 08:36 | Outpatient (REF) | payer MEDICARE, OTHER, SELFPAY ==
[2025-03-01 13:27] LABS: Alanine Aminotransferase 34 U/L (0-40); Aspartate Amino Transferase 31 U/L (5-37); Estimated Glomerular Filt Rate > 60; Uric Acid 5.8 mg/dL (3.4-7.0)
== END 2025-03-01 08:37 | disposition home or self-care (01) ==
LOC: HO.HKASLDS 08:36
PROVIDERS: PCP Internal Medicine; Visit Provider Internal Medicine Rheumatology
DX: M1A.09X0 Idiopathic chronic gout, multiple sites, without tophus (tophi) (principal); M70.52 Other bursitis of knee, left knee; Z79.899 Other long term (current) drug therapy
CPT/HCPCS: 36415; 82565; 84450; 84460; 84550; 99212